=== PATIENT | female | born 2005 | race Caucasian/White ===

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

== ENCOUNTER 2023-01-25 20:58 | Observation (INO) | payer OTHER, SELFPAY ==
[2023-01-25 21:38] VITALS: BMI 23.7
--- NOTE | 2023-01-25 21:38 | OBADM ---
This patient, Shweta Boucher, admitted to the OB room OB Post 117 for observation. Patient/family oriented to hospital policies and general routines including ID bracelet, bed and alarms, visiting hours, pain management, procedures, bathroom and other care routines, personal items, smoking policy, room service/diet, and visiting hours. Patient/Family are encouraged to report perceived risks to care and to ask questions if they do not understand what they are told or what they should do.
--- NOTE | 2023-01-26 07:53 | PM.OBTRLD ---
OB - Triage/Final Diagnosis Visit Information Date of evaluation: 01/25/23 Reason for evaluation: other (spotting) Comments/Additional reasons for admission: I have assessed the risk for this patient, Shweta Mercer Citlaly, and determined that she would benefit from observation care.
== END 2023-01-25 22:00 | disposition home or self-care (01) ==
PROVIDERS: Admitting Provider Student in an Organized Health Care Education/Training Program; Visit Provider Student in an Organized Health Care Education/Training Program
DX: O26.852 Spotting complicating pregnancy, second trimester (principal); Z3A.23 23 weeks gestation of pregnancy
CPT/HCPCS: G0378; G0379

== ENCOUNTER 2025-02-28 16:56 | Emergency (ER) | payer OTHER, SELFPAY ==
--- NOTE | ~2025-02-28 | XR_ITS ---
XR chest 1V portable Ordering provider: Janay Bleu MD History: 20 years Female with . L chest pain, CITLALLI . Comparison: None. FINDINGS: MEDIASTINUM: The cardiac silhouette is not enlarged. LUNGS: No infiltrates, effusions or pneumothorax. OTHER: No free air under the diaphragm. IMPRESSION: No acute cardiopulmonary pathology. Reviewed, dictated and finalized at location A.
--- OUTSIDE RECORDS SUMMARY | 2025-02-28 16:58 | XMS_ITS | Clinical Summary ---
Author Organization [facility] Address [address] [place] [address] Phone Care Team Providers Care Materials Director Name Role Phone WorkmanOsbaldo DO Primary Care Provider [phone] Social History Tobacco Use Types Packs/Day Years Used Date Smoking Tobacco: Never Assessed Comments Unknown Sex and Gender Information Value Date Recorded Sex Assigned at Not on file Legal Sex Female 12:16 PM CDT Gender Identity Not on file Sexual Orientation Not on file Plan of Treatment Health Maintenance Due Date Last Done Comments Hepatitis C Virus (HCV) Screening 2003 Meningococcal B Immunization (1 of 2 - Standard) 2019 Pap Smear 02/22/2024 Influenza Immunization (#1) 05/19/202406/19, 09/25/2014, 11/10/2011 SARS-COV-2 Immunization ( season) 2024 Respiratory Syncytial Virus (RSV) Immunization (Adult) (1 - 1-dose 75+ series) 2078 Hepatitis B Immunization Completed 003, 2003, 2003, Additional history exists Pneumococcal Immunization Combined Aged Out 2003, 2003, 2003 No longer eligible based on patient's age to complete this topic Human Papillomavirus (HPV) Immunization Completed 09/25/2014, 04/04/2013, 11/19/2012 Meningococcal Immunization (ACWY) Aged Out 09/25/2014 No longer eligible based on patient's age to complete this topic TdaP Immunization Completed 05/23/2022, , 09/25/2014 Rotavirus Immunization Aged Out No lo nger eligible based on patient's age to complete this topic Insurance MEDICAID [employer] Care Teams Materials Director Relationship Specialty Start Date End Date Osbaldo Martinez DO [address] [place] [address] PCP - General Family Medicine 02/14/23
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
--- OUTSIDE RECORDS SUMMARY | 2025-02-28 16:58 | XMS_ITS | Continuity of Care Document ---
Author Organization [facility] Address [address] [place] [address] [place] [address] Phone Care Team Providers Care Gin Operator Name Role Phone Emiliano Vázquez MD Unavailable Unavailable Allergies, Adverse Reactions, Alerts Substance Reaction Status Criticality No Known Allergies Active No Inform ation Medications Medication Instructions Dosage Effective Dates (start - stop) Status Comments Lexapro 20 mg tablet take 1 tablet by oral route every day 20 MG - Active buspirone 10 mg tablet take 1 tablet by oral route 2 times every day 10 MG - Active avoid driving or operate machines Vistaril 50 mg capsule take 1 capsule by oral route every bedtime as needed 50 MG - Active PRn for insomnia, avoid driving or operate machines Problems Condition Type Effective Dates (start - stop) [facility] Status Comments No Known Problems Procedures Procedure Date OFFICE/OUTPATIENT VISIT, EST PREV VISIT, NEW, AGE 12-17 Advance Directives Directive Yes / No Effective Date File Name No Information Encounters Encounter Description Practice Location Reason(s) For Visit Diagnoses Date Provider Providers Copied on Encounter [facility], [address] [place], [id number], tel:[phone] [facility] No Information 0 Gurpreet Cummings. [address] [place], [place], [id number] , [place]. tel:[phone] OFFICE/OUTPA TIENT VISIT, EST [facility], [address] [place], [id number], tel:[phone] [facility] anxiety1 (chief complaint) insomani1 (chief complaint) DepressionGeneraliz ed Anxiety DisorderInsomniaFam paramjit history of endo, nutritional and metabolic diseasesFatigue 9 Gurpreet Emiliano. [address], [place], [place], [id number] , [place]. [phone] PREV VISIT, NEW, AGE 12-17 [facility], [address], [place], [place], [id number], [place] tel:[phone] [facility] Physical (chief complaint) Encntr for routine child health exam w/o abnormal findings 9 Gurpreet Cummings. [address], [place], [place], [id number] , [place]. [phone] Family History Family Member Type Diagnosis Age At Onset Brother Problem (finding) ADD/ADHD Mother Problem (finding) Thyroid disorder Father Problem (finding) unknown Mother Problem (finding) Migraines Sister Problem (finding) Seizure disorder Payers Payer name Insurance type Covered constitution party ID Authoriza tion(s) No Information Social History Type Description Quantity Date Captured Comments Alcohol Use Details Unknown Caffeine Use Details Unknown Tobacco Use Status Smoking Status No Information Sex Female Chief Complaint And Reason For Visit No Information Plan Of Treatment Date Type Action Status Goal Tobacco cessation counseling completed History Of Present Illness Encounter Date Complaint History Of Prese nt Illness insomani1 Patient complain ing of a insomnia. Patient stated that she cannot fall asleep for least 2 hours every day. Patient feels slight fatigue in the morning. Patient denies any snoring and trouble with breathing at night. Patient denies any nightmare. anxiety1 Pt still feels s evere anxiety. Pt has mild depression also Pt denies any suicidal or homicidal thought Pt denies any crying spells. Pt did take lexapro and buspar which helped a little bit. Physical Pt needs annual physical. Pt is 8 months . Pt is not breast feeding. Pt has chronic anxiety with depression Pt has been taking zoloft during and she did not think it helped. pt stopped taking zoloft after . Pt feels sad, irritable with short temper. Pt is attentive to the baby and does not think her mood issue is interfering with caring of her . Pt also feels very anxious . She just moved in with her aunt who is her guardian now. Pt denies any suicidal or homicidal thought. Instructions Date Instruction Additional Infor nigel Nutrition surveillance Related t o Body mass index (BMI) 21.0-21.9, adult Assessments Type Assessment Date No Information
[2025-02-28 17:04] VITALS: BP 119/55; PULSE 58; RESP 18; TEMP 36.3; O2SAT 97
[2025-02-28 19:59] VITALS: BP 144/82; PULSE 86; RESP 18; O2SAT 98
--- NOTE | 2025-02-28 20:08 | ECG_ITS ---
Test Date: 2025-02-28 20:29:57 Measurements Intervals [place] Rate: 105 P: 47 WV: 167 QRS: 18 QRSD: 93 T: 29 QT: 307 QTc: 406 Interpretive Statements SINUS TACHYCARDIA INCOMPLETE RIGHT BUNDLE BRANCH BLOCK CONSIDER INFERIOR INFARCT, AGE INDETERMINATE MODERATE T-WAVE ABNORMALITY, CONSIDER ANTERIOR ISCHEMIA BASELINE ARTIFACT- I, II, III, AVR, AVL, AVF, V1-V6 ABNORMAL ECG No previous ECG available for comparison Electronically Signed On 03-01-2025 07:23:43 CDT by Shade Tucker D.O.
--- NOTE | 2025-02-28 20:14 | ED_ITS ---
HPI - SOB/Dyspnea General Chief Complaint: Shortness of Breath/Dyspnea Stated Complaint: i cant breath Time Seen by Provider: 02/28/25 20:03 History of Present Illness HPI Narrative: Patient at 12 weeks presents here with shortness of breath, and some chest pain, ongoing for last 2 days, had gone to another ER yesterday, and had been told to just take Tylenol. Had some chills. Vapes. Related Data Allergies Allergy/AdvReac Type Severity Reaction Status Date / Time No Known Allergies Allergy Mild Verified 02/28/25 19:54 Review of Systems 2 Review of Systems: All systems reviewed & are unremarkable except as noted in HPI and below PMFSH Past Medical History Medical History (Updated 03/01/25 @ 00:00 by Michelle Patterson) No active medical problems Social History Social History (Updated 12/18/21 @ 22:09 by Jeannette Butler PA-C) Substance use: never Exam 2 Narrative: EXAMINATION OF ORGAN SYSTEMS/BODY AREAS: Constitutional: Vital signs per nursing GENERAL: appears very anxious HEAD: Normal with no signs of head trauma. EYES: EOMI, conjunctiva normal ENT: Hearing grossly intact LUNGS: Nonlabored breathing. Clear to auscultation bilaterally HEART: [Regular rate and rhythm] ABD: [Soft], [nontender to palpation] EXT: Normal range of motion SKIN: [No rashes or lesions.] NEURO: [Alert and oriented x 3. No gross focal sensory or strength deficits.] PSYCH: Anxious affect Course Vital Signs Vital signs: Vital Signs Temperature 97.4 F L 02/28/25 17:04 Pulse Rate 58 L 02/28/25 17:04 Respiratory Rate 18 02/28/25 17:04 Blood Pressure 119/55 L 02/28/25 17:04 Pulse Oximetry 97 02/28/25 17:04 Temperature 97.4 F L 02/28/25 17:04 Pulse Rate 85 02/28/25 21:53 Respiratory Rate 18 02/28/25 21:53 Blood Pressure 144/82 H 02/28/25 19:59 Pulse Oximetry 99 02/28/25 21:53 Oxygen Delivery Room Air 02/28/25 19:57 MDM - SOB/Dyspnea MDM Narrative Medical decision making narrative: Patient at 12 weeks presenting here with chest pain and shortness of breath. On exam patient is [slightly tearful and anxious]. I will obtain EKG and chest xray to rule out arrhythmia/ischemia, pneumothorax, or other cause of chest discomfort/shortness of breath. I suspect likely anxiety and will try giving a dose of hydroxyzine and DuoNebs. She has already been seen at another hospital so I did feel further workup was reasonable here. Chest x-ray on my independent interpretation does not show any acute abnormality, no pneumothorax or consolidation. EKG - 12-Lead: Performed at 2028. Interpreted by me. [Sinus rhythm]. Rate 105. [Normal] axis. NC-interval [normal]. QRS duration [normal]. QTc [normal]. [No ST segment elevation or depression]. [T-wave normal]. Impression: No EKG evidence of acute ischemia or dysrhythmia. On reevaluation patient is feeling much better, resting comfortably, vital signs now stable. She states her shortness of breath has essentially resolved and so did her chest pain. She felt like the hydroxyzine was very helpful. Per YEARS criteria, ddimer below cutoff so CT-PE not indicated. Patient also declined CT PE and states she would rather go home. I did have long discussion with the patient and partner at bedside, with nurse at bedside, that I cannot rule out blood clots in her lungs and that this can be very serious and lead to , and that if she changes her mind about getting the CT she can always return to the ER, or if she starts having any new shortness of breath, chest pain or anything else, she needs to return to the ER immediately. Patient expresses understanding and agreement with this plan. She already has follow-up to her OBGYN in a week. Lab Data 02/28/25 20:43 02/28/25 20:43 Labs: Lab Results 02/28/25 Range/Units 20:43 WBC 9.3 (4.5-10.0) K/mm3 RBC 4.64 (4.2-5.4) M/mm3 Hgb 13.2 (12.0-15.0) g/dL Hct 40.3 (37.0-47.0) % MCV 86.9 (80-100) fl MCH 28.4 (26-34) pg MCHC 32.8 (32-36) g/dl RDW 14.9 H (11.5-14.5) % Plt Count 175 (150-375) k/mm3 MPV 9.4 (7.4-10.4) fl Immature Gran % (Auto) 0.3 (0-0.5) % Neut % (Auto) 74.4 H (45.5-73.1) % Lymph % (Auto) 20.8 (18.3-44.2) % [place] % (Auto) 3.9 (2.6-8.5) % Eos % (Auto) 0.4 (0-4.4) % Baso % (Auto) 0.2 (0.2-1.2) % Lymph # (Auto) 1.94 (0.9-3.2) K/mm3 [place] # (Auto) 0.4 (0.1-0.6) K/mm3 Eos # (Auto) 0.0 (0-0.3) K/mm3 Baso # (Auto) 0.0 (0.0-0.1) K/mm3 Abs Immat Gran (auto) 0.03 (0.00-0.031) K/mm3 Absolute Neuts (auto) 6.9 H (1.3-6.7) K/mm3 Absolute Nucleated RBC 0.000 (0.0-0.012) K/mm3 Nucleated RBC % 0.0 (0.0-0.2) % D-Dimer 0.82 H (<0.48) ug/mL Sodium 133 L (137-145) mmol/L Potassium 3.4 (3.4-5.0) mmol/L Chloride 103 (98-107) mmol/L Carbon Dioxide 21 L (22-30) mmol/L Anion Gap 9 (4-12) mmol/L BUN 8 (7-17) mg/dL Creatinine 0.47 L (0.7-1.0) mg/dL Estim Creat Clear Calc 139 ml/min Estimated GFR > 60 (59 - ) Glucose 151 H (65-110) mg/dL Calcium 11.4 H (8.4-10.2) mg/dL Magnesium 1.9 (1.6-2.3) mg/dL Total Bilirubin 0.4 (0.2-1.3) mg/dL AST 21 (14-36) U/L ALT 19 (6-35) U/L Alkaline Phosphatase 57 (38-126) U/L Troponin I < 0.012 (0.000-0.034) ng/mL Total Protein 7.7 (6.3-8.2) g/dL Albumin 4.1 (3.5-5.1) g/dL Discharge Plan Discharge Clinical Impression: Shortness of breath, Anxiety Patient Disposition: Home Condition: Stable Instructions: Shortness of Breath (ED) Additional Instructions: Please follow-up with your OBGYN. We did discuss obtaining a CT here today to rule out blood clots, but you were feeling better, and decided not to get it tonight. If you start having more chest pain or shortness of breath, lightheadedness, leg pain, or anything else at all concerning, or if you change your mind about getting the CT, please come back to the ER immediately. Patient Language: Chinese Prescriptions: New albuterol sulfate 90 mcg/actuation HFA aerosol inhaler 2 puff inhalation QID PRN (Reason: shortness of breath or wheezing) Qty: 8.5 0RF acetaminophen [Tylenol Extra Strength] 500 mg tablet 1,000 mg PO Q6H PRN (Reason: pain) Qty: 50 0RF hydroxyzine HCl 25 mg tablet 25 mg PO TID PRN (Reason: anxiety) Qty: 30 0RF Follow-up/Referrals: PHYSICIAN NOT ON STAFF,NONSTAFF [Primary Care Provider] -
[2025-02-28] MEDS: IPRATROPIUM 0.5 MG/ALBUTEROL SULFATE 2.5 MG AMPUL.NEB 3 ML INHALATION (20:22)
[2025-02-28 20:23] VITALS: PULSE 85; RESP 20
[2025-02-28] MEDS: ACETAMINOPHEN 500 MG TABLET 1000 MG PO (20:35)
[2025-02-28] MEDS: hydrOXYzine HCL 25 MG TABLET PO (20:35)
[2025-02-28 20:39] VITALS: PULSE 98
[2025-02-28 20:53] LABS: Basophils Percent Auto 0.2 % (0.2-1.2); Eosinophils Percent Auto 0.4 % (0-4.4); Hematocrit 40.3 % (37.0-47.0); Hemoglobin 13.2 g/dL (12.0-15.0); Immature Granulocyte Absolute 0.03 K/mm3 (0.00-0.031); Immature Granulocyte Percent A 0.3 % (0-0.5); Lymphocytes Absolute Auto 1.94 K/mm3 (0.9-3.2); Lymphocytes Percent Auto 20.8 % (18.3-44.2); Mean Corpuscular HGB Conc 32.8 g/dl (32-36); Mean Corpuscular Hemoglobin 28.4 pg (26-34); Mean Corpuscular Volume 86.9 fl (80-100); Mean Platelet Volume 9.4 fl (7.4-10.4); Monocytes Absolute Auto 0.4 K/mm3 (0.1-0.6); Monocytes Percent Auto 3.9 % (2.6-8.5); Neutrophils Absolute Auto 6.9 K/mm3 (1.3-6.7); Neutrophils Percent Auto 74.4 % (45.5-73.1); Platelet Count Result 175 k/mm3 (150-375); Red Blood Count 4.64 M/mm3 (4.2-5.4); Red Cell Distribution Width 14.9 % (11.5-14.5); White Blood Count 9.3 K/mm3 (4.5-10.0)
[2025-02-28 21:07] LABS: D Dimer 0.82 ug/mL (<0.48)
[2025-02-28 21:12] LABS: Alanine Aminotransferase 19 U/L (6-35); Albumin Level 4.1 g/dL (3.5-5.1); Alkaline Phosphatase 57 U/L (38-126); Anion Gap 9 mmol/L (4-12); Aspartate Amino Transferase 21 U/L (14-36); Bilirubin,Total 0.4 mg/dL (0.2-1.3); Blood Urea Nitrogen 8 mg/dL (7-17); Calcium 11.4 mg/dL (8.4-10.2); Carbon Dioxide 21 mmol/L (22-30); Chloride 103 mmol/L (98-107); Estimated CRCL calculation 139 ml/min; Estimated Glomerular Filt Rate > 60; Glucose 151 mg/dL (65-110); Magnesium 1.9 mg/dL (1.6-2.3); Potassium 3.4 mmol/L (3.4-5.0); Sodium 133 mmol/L (137-145); Total Protein 7.7 g/dL (6.3-8.2)
--- OUTSIDE RECORDS SUMMARY | 2025-02-28 21:18 | XMS_ITS | Continuity of Care Document ---
Author Organization [facility] Address [address] [address] [place] [address] Phone Care Team Providers Care Floor Runner Name Role Phone Emiliano Vázquez MD Unavailable [...] Diagnoses Date Provider Providers Copied on Encounter [facility] [place], [address] [place], [place], [id number], tel:[phone] [facility] [place] No Information 0 Gurpreet Cummings. [address] [place] [place], [id number] , [place]. tel:[phone] OFFICE/OUTPA TIENT VISIT, EST [facility] [place], [address] [place], [place], [id number], tel:[phone] [facility] anxiety1 (chief complaint) insomani1 (chief complaint) DepressionGeneraliz ed Anxiety DisorderInsomniaFam paramjit history of endo, nutritional and metabolic diseasesFatigue 9 Gurpreet Emiliano. [address], [place], [place], [address] , [place]. [phone] PREV VISIT, NEW, AGE 12-17 [facility] [place], [address], [place], [place], [id number], [place] tel:[phone] [facility] [place] Physical (chief complaint) Encntr for routine child health exam w/o abnormal findings 9 Gurpreet Cummings. [address], [place], [place], [address] , [place]. [phone] Family History Family Member Type Diagnosis Age At Onset Brother Problem (finding) ADD/ADHD Mother Problem (finding) Thyroid disorder Father Problem (finding) unknown Mother Problem (finding) Migraines Sister Problem (finding) Seizure disorder Payers Payer name Insurance type Covered alliance party ID Authoriza tion(s) No Information Social [...]
--- OUTSIDE RECORDS SUMMARY | 2025-02-28 21:18 | XMS_ITS | Clinical Summary ---
Author Organization [facility] Address [address] [place] [address] Care Team Providers Care Scientific Aide Name Role Phone Unavailable Primary Care Provider Unavailabl e Source Comments [facility],non-owned Affiliates and Associated Physician Practices is amultiple site organization consisting of ambulatory clinics and hospital sitesin [place], [place], [place] and [place]. This disclosure is being madepursuant to the Care Everywhere program and may not contain all information available regarding this patient. Last updated 18.[facility] Allergies No known active allergies Medications * [...] AMPLIFIED PROBE (02/08/2023 1:49 PM CDT) Pathologist [facility] Chlamydia Amplified Probe Negative Negative 02/08/2023 8:12 PM CDT [facility] GC Amplified Probe Negative Negative 02/08/2023 8:12 PM CDT [facility] Microbiology ENTIRE ENDOCERVIX / Unknown Collection / Unknown 02/08/2023 1:49 PM CDT 02/08/2023 1:57 PM CDT Narrative [facility] - 02/08/2023 8:12 PM CDT Results based on detection/no detection of ribosomal RNA by amplified method. Gavi Ross TOWEL STRETCHER-[employer]B [employer] [facility] - MICROBIOLOGY OR DERABLES Final Result [facility] [address] [place] [address], [facility] [phone] * HIV-1 HIV-2 ANTIBODY + HIV P24 AG PANEL (02/08/2023 12:30 PM CDT) Pathologist [facility] HIV1/2 Ab + P24 Ag Non Reactive Non Reactive 02/08/2023 1:37 PM CDT [facility] Blood BLOOD SPECIMEN / Unknown Venipuncture / Unknown 02/08/2023 12:30 PM CDT 02/08/2023 12:37 PM CDT Narrative [facility] - 02/08/2023 1:37 PM CDT No Laboratory evidence of HIV infection. [facility] - CHEMISTRY ORDERABLES Fin al Result Performing Organization Address City/[facility] Co de Phone Number [facility] [address] [place] [address] * HEPATITIS C ANTIBODY (02/08/2023 12:30 PM CDT) HCV Antibody Screen Non Reactive Non Reactive 02/08/2023 1:40 PM CDT [facility] Blood BLOOD SPECIMEN / Unknown Venipuncture / Unknown 02/08/2023 12:30 PM CDT 02/08/2023 12:37 PM CDT Narrative [facility] - 02/08/2023 1:40 PM CDT Non Reactive - Antibodies to Hepatitis C virus (HCV) were not detected, result does not exclude early acute HCV infection. [facility] - CHEMISTRY ORDERABLES Fin al Result Performing Organization Address [facility] de Phone Number [facility] [address] [place] [address] from Last 3 Months or Most Recently Relevant to Health Maintenance Insurance [facility]
--- OUTSIDE RECORDS SUMMARY | 2025-02-28 21:18 | XMS_ITS | Clinical Summary ---
Author Organization [facility] Address [address] [place] [address] Phone Care Team Providers Care Evp And Chief Operating Officer Name Role Phone WorkmanOsbaldo DO Primary Care Provider [phone] Social History Tobacco Use Types Packs/Day Years [...] Insurance MEDICAID [employer] Care Teams Evp And Chief Operating Officer Relationship Specialty Start Date End Date Osbaldo Martinez DO [address] [place] [address] PCP - General Family Medicine 02/14/23
[2025-02-28 21:24] LABS: Troponin I < 0.012 ng/mL (0.000-0.034)
[2025-02-28 21:25] VITALS: PULSE 80; RESP 20; O2SAT 99
--- NOTE | 2025-02-28 21:40 | PC.NURSE ---
Addendum entered by Gavi Bauer RN 02/28/25 21:42: MD at bedside for this discussion and aware. Original Note: Patient feeling much better after tylenol and atarax. Discussed elevated dimer in the setting of vs PE. Patient wishes to go home and will closely monitor and reviewed signs and symptoms to return to ER. CTA cancelled.
[2025-02-28 21:53] VITALS: PULSE 85; RESP 18; O2SAT 99
== END 2025-02-28 21:54 | disposition home or self-care (01) ==
PROVIDERS: Emergency Provider Emergency Medicine
DX: O26.891 Other specified pregnancy related conditions, first trimester (principal); R06.02 Shortness of breath; O99.341 Other mental disorders complicating pregnancy, first trimester; F41.9 Anxiety disorder, unspecified; O99.891 Other specified diseases and conditions complicating pregnancy; R00.0 Tachycardia, unspecified; Z3A.12 12 weeks gestation of pregnancy; I45.10 Unspecified right bundle-branch block; R94.31 Abnormal electrocardiogram [ECG] [EKG]
CPT/HCPCS: 36415; 71045; 80053; 83735; 84484; 85025; 85380; 93005; 94640; 99284; A9270

== ENCOUNTER 2025-04-24 10:19 | Observation (INO) | payer OTHER, SELFPAY ==
--- NOTE | 2025-04-24 10:30 | PC.NURSE ---
doppled FHTs, FHR baseline 145, variability 142-154
[2025-04-24 10:33] VITALS: BP 135/75; PULSE 80
--- OUTSIDE RECORDS SUMMARY | 2025-04-24 10:33 | XMS_ITS | Clinical Summary ---
Author Organization [facility] Address [address] [place] [address] Phone Care Team Providers Care Community Development Specialist Name Role Phone WorkOsbaldo acosta DO Primary Care Provider [phone] Social History Tobacco Use Types Packs/Day Years [...] Immunization (1 of 2 - Standard) 2019 SARS-COV-2 Immunization ( season) 2024 Influenza Immunization (#1) 05/19/202506/19, 09/25/2014, 11/10/2011 Respiratory Syncytial Virus (RSV) Immunization (Adult) (1 [...] Insurance [employer] Care Teams Community Development Specialist Relationship Specialty Start Date End Date Osbaldo Martinez DO [address] [place] [address] PCP - General Family Medicine 02/14/23
--- OUTSIDE RECORDS SUMMARY | 2025-04-24 10:33 | XMS_ITS | Continuity of Care Document ---
Author Organization [facility] Address [address] [place] [place] [address] [place] [address] Phone Care Team Providers Care Benefits Clerk Name Role Phone Emiliano Vázquez MD Unavailable Unavailable Allergies, Adverse Reactions, Alerts Substance Reaction Status Criticality No Known Allergies Active No Inform ation Medications Medication Instructions Dosage Effective Dates (start - stop) Status Comments Vistaril 50 mg capsule take 1 capsule by oral route every bedtime as needed 50 MG - Active PRn for insomnia, avoid driving or operate machines buspirone 10 mg tablet take 1 tablet by oral route 2 times every day 10 MG - Active avoid driving or operate machines Lexapro 20 mg tablet take 1 tablet by oral route every day 20 MG - Active Problems Condition Type Effective Dates (start - stop) [facility] Status Comments No Known Problems Procedures Procedure Date OFFICE/OUTPATIENT VISIT, EST PREV VISIT, NEW, AGE 12-17 Advance Directives Directive Yes / No Effective Date File Name No Information Encounters Encounter Description Practice Location Reason(s) For Visit Diagnoses Date Provider Providers Copied on Encounter [facility], [address] [place], [place], [id number], tel:[phone] [facility] No Information 0 Gurpreet Cummings. [address] [place], [place], [address] , [place]. tel:[phone] OFFICE/OUTPA TIENT VISIT, EST [facility], [address] [place], [place], [id number], tel:[phone] [facility] anxiety1 (chief complaint) insomani1 (chief complaint) DepressionGeneraliz ed Anxiety DisorderInsomniaFam paramjit history of endo, nutritional and metabolic diseasesFatigue 9 Gurpreet Emiliano. [address], [place], [place], [id number] , [place]. [phone] PREV VISIT, NEW, AGE 12-17 [facility], [address], [place], [place], [address], [place] tel:[phone] [facility] Physical (chief complaint) Encntr for routine child health exam w/o abnormal findings 9 Gurpreet Cummings. [address], [place], [place], [address] , [place]. [phone] Family History Family Member Type Diagnosis Age [...] Date Complaint History Of Prese nt Illness anxiety1 Pt still feels s evere anxiety. Pt has mild depression also Pt denies any suicidal or homicidal thought Pt denies any crying spells. Pt did take lexapro and buspar which helped a little bit. insomani1 Patient complain ing of a insomnia. Patient stated that she cannot fall asleep for least 2 hours every day. Patient feels slight fatigue in the morning. Patient denies any snoring and trouble with breathing at night. Patient denies any nightmare. Physical Pt needs annual physical. Pt is [...]
--- OUTSIDE RECORDS SUMMARY | 2025-04-24 10:33 | XMS_ITS | Clinical Summary ---
Author Organization [facility] Address [address] [place] [address] Care Team Providers Care Mathematician Name Role Phone Unavailable Primary Care Provider Unavailabl e Source Comments [facility],non-owned Affiliates and Associated Physician Practices is amultiple site organization consisting of ambulatory clinics and hospital sitesin [place], [place], [place] and [place]. This disclosure is being madepursuant to the Care Everywhere program and may not contain all information available regarding this patient. Last updated 18.[facility] Allergies No known active allergies Medications * [...] season) 2024 DEPRESSION SCREENING 09/18/2024 INFLUENZA VACCINE (#1) 2025 6, 09/25/2014, 11/10/2011 ZOSTER VACCINE (1 of 2) [...] AMPLIFIED PROBE (02/08/2023 1:49 PM CDT) Pathologist [facility] Chlamydia Amplified Probe Negative Negative 02/08/2023 8:[address] [facility] GC Amplified Probe Negative Negative 02/08/2023 8:[address] [facility] Microbiology ENTIRE ENDOCERVIX / Unknown Collection / Unknown 02/08/2023 1:49 PM CDT 02/08/2023 1:[address] [facility] - 02/08/2023 8:12 PM CDT Results based on detection/no detection of ribosomal RNA by amplified method. Gavi Ross CAR WORKER HELPER-SEASONER LAB - MICROBIOLOGY OR DERABLES Final Result [facility] [address] [place] [address], [facility] [phone] * HIV-1 HIV-2 ANTIBODY + HIV P24 AG PANEL (02/08/2023 12:30 PM CDT) Pathologist [facility] HIV1/2 Ab + P24 Ag Non Reactive Non Reactive 02/08/2023 1:37 PM CDT [facility] Blood BLOOD SPECIMEN / Unknown Venipuncture / Unknown 02/08/2023 12:30 PM CDT 02/08/2023 12:37 PM CDT Narrative [facility] - 02/08/2023 1:37 PM CDT No Laboratory evidence of HIV infection. [facility] - CHEMISTRY ORDERABLES Fin al Result Performing Organization Address City/[facility] Co de Phone Number [facility] [address] [place] [address] * HEPATITIS C ANTIBODY (02/08/2023 12:30 PM CDT) HCV Antibody Screen Non Reactive Non Reactive 02/08/2023 1:40 PM CDT [facility] Blood BLOOD SPECIMEN / Unknown Venipuncture / Unknown 02/08/2023 12:30 PM CDT 02/08/2023 12:37 PM CDT Narrative [facility] - 02/08/2023 1:40 PM CDT Non Reactive - Antibodies to Hepatitis C virus (HCV) were not detected, result does not exclude early acute HCV infection. [facility] - CHEMISTRY ORDERABLES Fin al Result Performing Organization Address [facility] de Phone Number [facility] [address] [place] [address] from Last 3 Months or Most Recently Relevant to Health Maintenance Insurance [facility]
[2025-04-24 10:45] VITALS: BP 133/71; PULSE 80
[2025-04-24 11:00] VITALS: BP 119/74; PULSE 81
[2025-04-24 11:07] LABS: Add Urine Microscopic? YES; Appearance Urine Cloudy (Clear); Glucose Urine UA Negative (Negative); Leukocyte Esterase Ur 1+ LEU/UL (Negative); Need Manual Microscopic Reviewed; Nitrate Urine Negative (Negative); Non Pathogenic Casts 0-2; Specific Grav Ur 1.007 (1.001-1.035)
--- NOTE | 2025-04-24 11:08 | OBADM ---
This patient, Shweta Boucher, admitted to the OB room OB Post 116 for observation. Patient/family oriented to hospital policies and general routines including ID bracelet, bed and alarms, visiting hours, pain management, procedures, bathroom and other care routines, personal items, smoking policy, room service/diet, and visiting hours. Patient/Family are encouraged to report perceived risks to care and to ask questions if they do not understand what they are told or what they should do.
[2025-04-24 11:15] VITALS: BP 121/66; PULSE 78
[2025-04-24 11:30] VITALS: BP 123/64; PULSE 69
[2025-04-24 11:45] VITALS: BP 125/72; PULSE 74
--- NOTE | 2025-04-24 11:45 | PC.NURSE ---
Spoke to Dr. Ruiz (sql application developer OB) at nurses station. Discussed UA showed 1+ bacteria but most likely contamination due to many squamous cells present. Discussed pt. was on metronidazole for a yeast infection that she stopped yesterday d/t symptoms not resolving. Order received for diflucan 150 mg PO every other day for a total of 2 doses. Order received to perform SVE to r/o labor.
--- NOTE | 2025-04-24 12:00 | PC.NURSE ---
Performed SVE per Dr. Ruiz order. Cervix is closed thick and high. White cottage cheese like discharge and redness to labia noted with exam
--- NOTE | 2025-04-24 12:07 | PC.NURSE ---
Spoke to Dr. Ruiz at nurses station and notified of SVE closed thick and high. Order received for pt. to discharge home.
--- NOTE | 2025-04-24 12:15 | PC.NURSE ---
Awaiting diflucan to arrive to floor to administer to pt. prior to discharge as pt. has lack of transportation. Pt. would like to eat lunch before discharge and will be awaiting voucher approval for a cab to dc home, as pt. arrived via EMS and does not have a way to get home.
[2025-04-24] MEDS: FLUCONAZOLE 150 MG TABLET PO (12:58)
--- NOTE | 2025-04-24 13:27 | PC.NURSE ---
Pt. given PTL handout, SDH handout on housing and has scheduled apt. with Dr. Nayak tomorrow. Given cab voucher for rechecker [employer] [place] and escorted to main entrance by this RN for pick up worker by cab.
--- NOTE | 2025-05-18 16:38 | P.PNOB_ITS ---
OB - Triage/Final Diagnosis Visit Information Comments/Additional reasons for admission: I have assessed the risk for this patient, Shweta Boucher, and determined that she would benefit from observation care. Evaluation Laboratory results: Laboratory Tests 04/24/25 10:39 Urine Color Yellow Urine Appearance Cloudy H Urine pH 6.0 Ur Specific [place] 1.007 Urine Protein Negative Urine Glucose (UA) Negative Urine Ketones Negative Ur Blood (Man) Negative Urine Nitrate Negative Urine Bilirubin Negative Urine Urobilinogen 0.2 Ur Leukocyte Esterase 1+ H Add Ur Microanalysis Reviewed Urine RBC 0-2 Urine WBC 11-20 H Ur Squamous Epith Cells Many H Urine Bacteria 1+ H Urine Casts 0-2 Final Diagnosis (1) False labor: Code(s): O47.9 - False labor, unspecified Status: Acute
== END 2025-04-24 13:27 | disposition home or self-care (01) ==
PROVIDERS: Admitting Provider Obstetrics & Gynecology; Visit Provider Obstetrics & Gynecology
DX: O47.02 False labor before 37 completed weeks of gestation, second trimester (principal); Z3A.19 19 weeks gestation of pregnancy
CPT/HCPCS: 81001; A9270; G0378; G0379

== ENCOUNTER 2025-06-24 09:11 | Outpatient (RCR) | payer OTHER, SELFPAY ==
--- OUTSIDE RECORDS SUMMARY | 2025-06-22 11:05 | XMS_ITS | Clinical Summary ---
Author Organization [facility] Address [address] [place] [address] Phone Care Team Providers Care Licensed Real Estate Broker Name Role Phone WorkOsbaldo acosta DO Primary Care Provider [phone] Social History Tobacco Use Types Packs/Day Years [...] Immunization (1 of 2 - Standard) 2019 Influenza Immunization (#1) 05/19/202506/19, 09/25/2014, 11/10/2011 SARS-COV-2 Immunization ( season) 2025 Respiratory Syncytial Virus (RSV) Immunization (Adult) (1 [...] Insurance [employer] Care Teams Licensed Real Estate Broker Relationship Specialty Start Date End Date Osbaldo Martinez DO [address] [place] [address] PCP - General Family Medicine 02/14/23
--- OUTSIDE RECORDS SUMMARY | 2025-06-22 11:05 | XMS_ITS | Encounter Summary ---
Author Organization [facility] Address [address] [place] [id number] Care Team Providers Care Finishing And Shipping Supervisor Name Role Phone Glenny Brown Primary Care Provider [phone] Ran Martinez DO Primary Care Provider Malu Cortes WOOL WASHER FEEDER Primary Care Provider [phone] Kassi Locke MEDICAL PHYSICIST Primary Care Provider [phone] Encounter Details Date Type Department Care Team (Late st Contact Info) Description 10/04/2018 Abstract [facility] CONVERSION [address] [place] [address] , Yarelis Delatorre MD Social History Tobacco Use Types Packs/Day Years Used Date Smoking Tobacco: Never Assessed Comments Unknown Sex and Gender Information Value Date Recorded Sex Assigned at Not on file Legal Sex Female 10:23 PM NEUROLOGY DIRECTOR Gender Identity Not on file Sexual Orientation Not on file documented as of this encounter Plan of Treatment Not on file documented as of this encounter Visit Diagnoses Not on filedocumented in this encounter Additional Health Concerns Infection Onset Date Last Indicated Resolved Time COVID-19 Rule Out 03/26/2022 03/26/2022 03/26/2022 4:26 PM CDT documented as of this encounter Care Teams Finishing And Shipping Supervisor Relationship Specialty Start Date End Date Glenny Brown FNP [address] [place] [address] PCP - General NURSE PRACTITIONER 12/05/18 06/27/21 Ran Martinez DO [address] [place] [address] PCP - General FAMILY PRACTICE 06/28/21 12/14/23 Malu Cortes APRN [address] [place] [address] PCP - General NURSE PRACTITIONER 12/25/23 04/03/24 Kassi Locke, PAUL [address] [place] [address] PCP - General NURSE PRACTITIONER 04/04/24 03/06/25 documented as of this encounter
--- OUTSIDE RECORDS SUMMARY | 2025-06-22 11:05 | XMS_ITS | Clinical Summary ---
Author Organization [facility] Address [address] [place] [address] Care Team Providers Care Steam Tunnel Feeder Name Role Phone Unavailable Primary Care Provider Unavailabl e Source Comments [facility],non-owned Affiliates and Associated Physician Practices is amultiple site organization consisting of ambulatory clinics and hospital sitesin [place], [place], [place] and [place]. This disclosure is being madepursuant to the Care Everywhere program and may not contain all information available regarding this patient. Last updated 18.[facility] Allergies No known active allergies Medications * [...] CHLAMYDIA/GONORRHEA SCREENING 02/09/2024, 07/17/2022 PAP SMEAR 02/22/2024 DEPRESSION SCREENING 09/18/2024 COVID-19 VACCINE (1 - 2023-2 5 season) 2025 INFLUENZA VACCINE (#1) 2025 6, 09/25/2014, 11/10/2011 [...] Probe Negative Negative 02/08/2023 8:12 PM CDT [facility] GC Amplified Probe Negative Negative 02/08/2023 8:12 PM CDT [facility] Microbiology ENTIRE ENDOCERVIX / Unknown Collection / Unknown 02/08/2023 1:49 PM CDT 02/08/2023 1:57 PM CDT Narrative [facility] - 02/08/2023 8:12 PM CDT Results based on detection/no detection of ribosomal RNA by amplified method. Gavi Ross PLANNING ENGINEER-ASSISTANT HEAD CASHIER LAB - MICROBIOLOGY OR DERABLES Final Result [facility] [address] [place] [address], [facility] [phone] * HIV-1 HIV-2 ANTIBODY + HIV P24 AG PANEL (02/08/2023 12:30 PM CDT) Pathologist [facility] HIV1/2 Ab + P24 Ag Non Reactive Non Reactive 02/08/2023 1:37 PM CDT [facility] Blood BLOOD SPECIMEN / Unknown Venipuncture / Unknown 02/08/2023 12:30 PM CDT 02/08/2023 12:37 PM CDT Narrative [facility] - 02/08/2023 1:37 PM CDT No Laboratory evidence of HIV infection. [facility] - CHEMISTRY ORDERABLES Fin al Result Performing Organization Address City/[facility] Co de Phone Number [facility] [address] [place] [address] * HEPATITIS C ANTIBODY (02/08/2023 12:30 PM CDT) HCV Antibody Screen Non Reactive Non Reactive 02/08/2023 1:40 PM CDT [facility] Blood BLOOD SPECIMEN / Unknown Venipuncture / Unknown 02/08/2023 12:30 PM CDT 02/08/2023 12:37 PM CDT Narrative [facility] - 02/08/2023 1:40 PM CDT Non Reactive - Antibodies to Hepatitis C virus (HCV) were not detected, result does not exclude early acute HCV infection. [facility] - CHEMISTRY ORDERABLES Fin al Result Performing Organization Address [facility] de Phone Number [facility] [address] [place] [address] from Last 3 Months or Most Recently Relevant to Health Maintenance Insurance [facility]
--- OUTSIDE RECORDS SUMMARY | 2025-06-22 11:05 | XMS_ITS | Data Portability ---
Author Organization [facility] Address [address] [place] [address] Assessment No assessment recorded. Plan of Treatment Reminders Order Date Submit Date Provider Last Modified By Organization Details Last Modified Time Details Appointments U/S OB GROWTH 2024 10:00A M ULTRASOUND Not available Not available Not available OB ROUTINE 2024 10:45A M ANDREW CHATMAN MD Not available Not available Not available Lab bacteri al vaginos is DNA, PCR, vaginal fluid 2024 025 [facility] (Lab), [address], [place], [address], 05/22/2025 17:05:21 chago sp DNA, vaginal 2024 025 [facility] (Lab), [address] [place], [address], 05/22/2025 17:05:21 STI panel 2024 025 [facility] (Lab), [address], [place], [address], 05/22/2025 17:05:20 Referral None recorde d. Procedures None recorde d. Surgeries None recorde d. Imaging US, obstetr ic, follow- up 2024 025 [facility], [address], [place], [address], 06/04/2025 14:07:37 US, obstetr ic, 2nd or 3rd trimest er 2024 025 [email or web address] [place], [address], [place], [address], 05/07/2025 14:03:49 Medication Orders Procard ia XL 30 mg tablet, extende d release 2024 025 [id number], [address], [place], [place], [id number], 05/07/2025 12:57:17 Patient TargetsNo targets recorded. Patient InstructionsNo instructions recorded. Reason for Referral None Reported. Results Created Date Observation Date Name Description Value Unit Range Abnormal Flag Note LastModifiedBy Organization Detail LastModifiedTime 05/07/2005/07/2025 US, obste tric, 2nd or 3rd trime ster No observ ation record ed. [email or web address] [place] [address], [place], [address], 05/07/2025 18:24:42 05/07/20 25 05/07/2025 US, obste tric, 2nd or 3rd trime ster No observ ation record ed. [email or web address] [address], [place], [address], 05/07/2025 14:17:24 06/04/20 25 06/04/2025 , obste tric, follo w-up No observ ation record ed. [email or web address] [address], [place], [address], 06/04/2025 13:43:46 06/04/20 25 06/04/2025 US, obste tric, follo w-up No observ ation record ed. [email or web address] [address], [place], [address], 06/04/2025 14:09:43 Result Notes None recorded. Problems Name Problem SNOMED Code Status Onset Date Resolution Date Notes Provider Name and Address Organization Details Recorded Time 78442127 Active 2024 PRISCILA Gupta severino, [facility] 16:17:32 Pleurisy 201721406 Active 2024 albuterol PRN ANDREW CHATMAN MD [address], [place], [address], [facility] 5 16:32:17 Anxiety 21534900 Active 2024 hydroxyzi ne PRN ANDREW CHATMAN MD [address], [place], [address], [facility] 5 16:32:34 Hypertens cristina disorder 69297781 Active 2024 baseline labs 03/17 wnl Procardia XL 60 daily ANDREW CHATMAN MD [address], [place], [address], [facility] 5 11:33:46 Abnormal placenta affecting managemen t of mother 75416533 Active 2024 - serial growth US ANDREW CHATMAN MD [address], [place], [address], [facility] 5 12:57:01 Large for gestation age fetus 692619958 Active 2024 - EFW 98% at 24 weeks - Continue serial growth US ANDREW CHATMAN MD [address], [place], [address], [facility] 5 12:35:30 Problem Notes None recorded. Medical Equipment None Reported. Allergies No known drug allergies Medications Name Sig Start Date Stop Date Status Note LastModified by Organization Details LastModified Time nifedipine ER 30 mg tablet,exte nded release 24 hr TAKE 1 TABLET BY MOUTH EVERY DAY active Not Available Not Available No t Available fluconazole 150 mg tablet Take 1 tablet as needed by oral route for 1 day. 05/29 completed Not Available Not Available Not Available ondansetron HCl 4 mg tablet TAKE 2 TABLETS BY MOUTH EVERY DAY DIRECTED active Not Available Not Available No t Available metronidazo le 500 mg tablet TAKE 1 TABLET BY MOUTH TWICE DAILY FOR 7 DAYS 05/07 completed Not Available Not Available Not Available acetaminoph en 500 mg tablet TAKE 2 TABLETS BY MOUTH EVERY 6 HOURS NEEDED FOR PAIN 2024 active Not Available Not Available Not Avai lable amoxicillin 500 mg tablet Take 1 tablet twice a day by oral route for 5 days. 05/07 completed Not Available Not Available Not Available nifedipine ER 60 mg tablet,exte nded release 24 hr TAKE 1 TABLET BY MOUTH EVERY DAY active Not Available Not Available No t Available hydroxyzine HCl 25 mg tablet TAKE 1 TABLET BY MOUTH THREE TIMES DAILY NEEDED FOR ANXIETY 2024 active Not Available Not Available Not Avai lable albuterol sulfate HFA 90 mcg/actuati on aerosol inhaler INHALE 2 PUFFS BY MOUTH FOUR TIMES DAILY NEEDED FOR SHORTNESS OF BREATH OR WHEEZING active Not Available Not Available No t Available ondansetron 4 mg disintegrat ing tablet DISSOLVE 1 TABLET ON THE TONGUE EVERY 4 TO 6 HOURS NEEDED active Not Available Not Available No t Available Vitals Date Recorded Body weight Systolic And Diastolic Provider Name and Address Organization Details Last Updated DateTime 05/07/2025 92585.08135 g 128/84 mm[Hg] Quin Aj [facility] 05/07/2025 12:26:53 Date Recorded Body height Body mass index (BMI) Body weight Systolic And Diastolic Provider Name and Address Organization Details Last Updated DateTime 05/16/2025 152.4 cm 28.8 kg/m2 42382.23 g 128/77 mm[Hg] Isatu Pike [facility] 05/16/2025 11:46:01 Date Recorded Body weight Systolic And Diastolic Provider Name and Address Organization Details Last Updated DateTime 06/04/2025 11051.71634 g 136/82 mm[Hg] Nickie Alexei [facility] 06/04/2025 11:00:41 Social History Question Answer Notes LastModified by Organizat ion Details LastModified Time Tobacco Smoking Status Never Smoker [facility] 03/17/2025 14:57:54 Do You Have An Advance Directive? No Information n ot available 03/17/2025 If You Are , What Was Your Level Of Alcohol Consumption Prior To ? None [email or web address] Information not available 03/17/2025 Are You Blind Or Do You Have Difficulty Seeing? No [email or web address] Information n ot available 03/17/2025 What Is Your Level Of Caffeine Consumption? None Information not available 03/17/2025 In The 14 Days Before Symptom Onset, Have You Had Close Contact With A Laboratory-confirm ed COVID-19 While That Case Was Ill? No [email or web address] Information n ot available 03/17/2025 In The 14 Days Before Symptom Onset, Have You Had Close Contact With A Person Who Is Under Investigation For COVID-19 While That Person Was Ill? No [email or web address] Information not available 03/17/2025 Have You Been To An Area Known To Be High Risk For COVID-19? No [email or web address] Information not available 03/17/2025 Are You Deaf Or Do You Have Serious Difficulty Hearing? No Information not available 03/17/2025 What Type Of Diet Are You Following? REGULAR [email or web address] Information n ot available 03/17/2025 What Is The Highest Grade Or Level Of School You Have Completed Or The Highest Degree You Have Received? [id number] [email or web address] Information not available 03/17/2025 Are There Any Guns Present In Your Home? No [email or web address] Information not available 03/17/2025 Do You Use Your Seat Belt Or Car Seat Routinely? Yes [email or web address] Information not available 03/17/2025 Are You Sexually Active? Yes [email or web address] Information not available 03/17/2025 Do You Have Smoke And Carbon Monoxide Detectors In Your Home? Yes [email or web address] Information not available 03/17/2025 Do You Use Sunscreen Routinely? Yes [email or web address] Information not available 03/17/2025 Has Tobacco Cessation Counseling Been Provided? No Information not available 03/17/2025 Do You Have Difficulty Walking Or Climbing Stairs? No [email or web address] Information not available 03/17/2025 Sex: Unknown Functional Status Question Answer Note LastModified by Organizat ion Details LastModified Time Do you use any illicit or recreational drugs? No [email or web address] Information not available 03/17/2025 Do you or have you ever used any other forms of tobacco or nicotine? No [email or web address] Information not available 03/17/2025 What is your level of alcohol consumption? None [email or web address] Information not available 03/17/2025 Are you able to walk independently without assistance or assistive devices? YESWOREST [email or web address] Information not available 03/17/2025 Are you able to care for yourself independently? Yes [email or web address] Information not available 03/17/2025 Do you have difficulty dressing, bathing, grooming, or toileting? No [email or web address] Information not available 03/17/2025 What is your exercise level? None [email or web address] Information not available 03/17/2025 Mental Status Question Answer Note LastModified by Organization D etails LastModified Time Do you feel stressed (tense, restless, nervous, or anxious, or unable to sleep at night)? [id number] [email or web address] Information not available 03/17/2025 Family History Relationship Description Onset Age of this Age Resolved Age Notes LastModified by Organization Details LastModified Time Mother Diabetes mellitus [email or web address] Not available 2024 15:00:16 Mother Hypertensive disorder Not available 2024 15:00:32 Maternal Grandmother Malignant neoplasm of breast [email or web address] Not available 2024 15:00:53 Maternal Grandmother Carcinoma of colon [email or web address] Not available 2024 15:01:28 Maternal Grandmother Diabetes mellitus [email or web address] Not available 2024 15:01:38 Maternal Grandfather Diabetes mellitus [email or web address] Not available 2024 15:01:46 Maternal Grandfather Hypercholest erolemia [email or web address] Not available 2024 15:02:26 Maternal Grandfather Heart disease Not available 2024 15:02:42 Medical History Condition Response Allergies (Food, seasonal, environmental ) N Other N Blood Transfusion N Breast Cancer N Drug/Latex Allergies/Reactions N Lung Disease N Dermatologic Disorders N Defects or Inherited Disease N Breast Problem N Gestational Diabetes N Hematologic disorders N Anesthesia Complications N History of STI N Deep Vein Thrombosis N Polycystic ovary syndrome N Anxiety Disorder Y Autoimmune disease N Arthritis N Polyps N Infertility N History of abnormal pap N Acid Reflux (GERD) N Cancer N Varicosities N Stroke N Neurologic/Epilepsy N Endometriosis N High Cholesterol N Headaches N Fibromyalgia N Kidney Disease N Heart Problems N Thyroid Problems N Kidney or Bladder Problems N GI Problems N Eating Disorder N Anemia N Art (IVF or FET) N Psychiatric Illness N Ovarian Cancer N Diabetes N Pulmonary (TB, Asthma) N Hepatitis/Liver Disease N No Past Medical History N Eczema N Urinary Tract Infection N Abuse/Domestic Violence N Asthma Y Trauma/Violence N Depression/ depression Y Heart Disease N Pre-Eclampsia Y Hypertension Y Osteoporosis N Thrombophilias N Gynecological History Statement/Question Response Flow Moderate Date of LMP 12/07/2024 On BCP's at Conception? N Was last menstrual period normal Y STIs/STDs N HPV Vaccine Y Current Control Method Age at First Child 14 Are cycles usually normal Y Date of Last Colonoscopy Sexually Active? Y Menses Monthly Y Date of DEXA bone scan Age of first menstrual cycle 11 Date of Last Pap Smear Sexual Problems? N Desired Control Method None LMP Definite Obstetrics History GPAL:G 3 P 1 1 0 2 Type Value Full Term 1 Premature 1 Living 2 Total 3 Past Encounters Encounter ID Performer Location Encounter Start Date Encounter Closed Date Diagnosis/Indication Diagnosis SNOMED-CT Code Diagnosis ICD10 Code Diagnosis IMO Codes Diagnosis Note [id number] ANDREW CHATMAN MD [place] [address] [address] 03/17/2025 14:26:36 03/17/2025 16:09:07 screening 229364789 Z36.87 Z3A.14 [id number] ANDREW CHATMAN MD [place] [address] [address] 03/17/2025 14:27:27 03/17/2025 16:55:35 screening 022534761 Z36.0 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 Chronic hy pertension complicating AND/OR reason for care during 08147375 O10.919 79483999 - asymptomat ic- hx of preeclamps ia with severe features with G2 - not currently on BP meds- baseline labs today- if elevated again in 1 week, will start procardia XL 30 daily Gestation period, 14 weeks 55214708 Z3A.14 6145486 - continue PNV [id number] Lior Ruiz MD [place] [address],[place] [address] 04/02/2025 15:08:55 04/02/2025 16:18:16 care status 814041393 Z34.82 [id number] ANDREW CHATMAN MD [place] [address],[place] [address] 05/07/2025 11:05:46 05/07/2025 12:37:49 Ultrasound scan - obstetric 321651518 Z36.3 Z3A.21 [id number] ANDREW CHATMAN MD [place] [address],[place] [address] 05/07/2025 11:06:18 05/07/2025 12:57:31 Hypertensive disorder 59127051 I10 - chronic HTN, hx of preeclamps ia with severe features in G2 - discussed 37 week induction due to chronic HTN on meds- plan for 32 week testing Abnormal p lacenta affecting management of mother 23952450 O43.199 13214743 - serial growth US Gestation period, 21 weeks 73690898 Z3A.21 [id number] ANDREW CHATMAN MD [place] [address],[place] [address] 05/16/2025 11:31:03 05/16/2025 12:36:53 Recurrent candidiasis of vagina 009030649 B37.31 35191785 - treated x3 in last month- extended swab sent to evaluate further- follow up on results as available [id number] MD [place] [address],[place] [address] 06/04/2025 09:50:03 06/04/2025 10:56:40 Follow-up encounter 866082676 Z36.2 Z3A.25 [id number] ANDREW CHATMAN MD [place] [address],[place] [address] 06/04/2025 09:50:25 06/04/2025 12:39:13 Hypertensive disorder 94585702 I10 20941835 - chronic HTN, hx of preeclamps ia with severe features in G2 - discussed 37 week induction due to chronic HTN on meds - plan for 32 week testing- continue Procardix XL 60 daily Anxiety 79434523 F41.9 38268 Abnormal p lacenta affecting management of mother 20956666 O43.199 98977871 - serial growth US Large for gestation age fetus 115405412 O36.60X0 76468789 - EFW 98% at 24 weeks with borderline polyhydram nios- serial growth US Gestation period, 25 weeks 71776923 Z3A.25 3024697 - continue PNV Health Concerns Section Related Observation LastModified by Organization Detai ls LastModified Time None Recorded Concern Status LastModified by Organization Details LastModified Time None Recorded Advance Directives Directive N: Payers Insurance Date Sequence Insurance Name Policy Number Policy Sotelo Covered Member ID Sotelo Member ID Guarantor Name 06/01/2025 1 [facility] - DOS ON OR AFTER 21 (MEDICAID REPLACEMENT - HMO) Shweta Mercer Citlaly [id number] Shweta Guevara Citlaly 03/17/2025 1 [facility] [id number] Shwetastef Guevara Citlaly [id number] Shwetamaria esther Guevara Citlaly Notes Date Note Type Note Provider Name and Address Organization Details Recorded Time 05/07/2025 text/html Generic HPI TemplateReported by Patient ANDREW CHATMAN MD [address], [place], [address], [facility] 05/07/2025 12:57:27 05/16/2025 text/html ROS as noted in the HPI Patient presents for evaluation for recurrent yeast infections. She reports multiple episodes of irritation, abnormal white and thick discharge, and dryness. She has had temporary relief with Diflucan but symptoms keep returning. She tried Monistat 7 also with temporary relief. No new soaps or detergent or other irritants. Isatu haq, [facility] 05/16/2025 12:41:54 06/04/2025 text/html Generic HPI TemplateReported by Patient ANDREW CHATMAN MD [address], [place], [address], [place] [facility] 06/04/2025 12:37:05 OBGyn Episode Ob Episode Information Episode Created Date Number of Fetuses Patient Bloodtype Patient rh Status Prepregnancy Weight lbs Domestic Partner Domestic Partner Phone Father Name Risk Tech Status 03/17/20 25 1 CLOSED Fetus Data First Name Last Name Admitted to NICU Weight (g) Sex Living Outcome Pediatric Complications Fetus ID Race Codes Race Delivery Type 3373.36 [id number] F Full Term [id number] Vaginal Delivery Rasta Calculation Initial Rasta Date Initial Exam Date Initial Exam Provider Initial Ultrasound Date Last Menstrual Period Date Ultra Sound Weeks Gestation 0 Eighteen To Twenty Week Rasta Update Ultra Sound Date Fundal Height At Umbil Quickening Date Ultra Sound Latest Weeks Gestation Final Rasta Confirmed By Final Rasta Confirmed Date Final Rasta Date Ultra Sound Latest Days Gestation 0 0 Menstrual History Last Menstrual Date Menses Monthly On Bcp Conception Prior Menses Frequency Hcg Plus Date Menarche Onset Age Delivery Information Delivery Date Delivery Type Labor Anesthesia Weeks Gestation Incision Type Labor Labor Length Hrs Delivered By Post Complications Tubal Sterilization Discharge Date Comments 9 38 Discharge Information Feeding Method Contraceptive Method Maternal HG B and HCT Levels Ob Episode Information Episode Created Date Number of Fetuses Patient Bloodtype Patient rh Status Prepregnancy Weight lbs Domestic Partner Domestic Partner Phone Father Name Risk Tech Status 03/17/20 25 1 A Negative OPEN Fetus Data First Name Last Name Admitted to NICU Weight (g) Sex Living Outcome Pediatric Complications Fetus ID Race Codes Race Delivery Type [id number] Problems Problem Notes RHOGAM @ 28 WKS Problem Name Start Date End Date Resolution Snomed Code Not e Large for gestation age fetus 06/04/20251995136743722 - EFW 98% at 24 weeks- Continue serial growth US Anxiety 03/17/2025 57787359 hydroxyzi ne PRN Hypertensive disorder 03/17/2025 7262956 3 baseline labs 03/17 wnlProcardia XL 60 daily Abnormal placenta affecting management of mother 05/07/2025 58973590 - serial growth US Pleurisy 03/17/2025 010161541 albuterol PRN Rasta Calculation Initial Rasta Date Initial Exam Date Initial Exam Provider Initial Ultrasound Date Last Menstrual Period Date Ultra Sound Weeks Gestation 09/13/2025 03/17/2025 03/17/2025 12/07/2024 15 Eighteen To Twenty Week Rasta Update Ultra Sound Date Fundal Height At Umbil Quickening Date Ultra Sound Latest Weeks Gestation Final Rasta Confirmed By Final Rasta Confirmed Date Final Rasta Date Ultra Sound Latest Days Gestation 0 [email or web address] 03/17/2025 09/13/20 25 0 Pre-colleen Flowsheet Flowsheet Date 03/17/2025 Kessler Score Blood Edema Fundus Height Fundus Units Glucose Ketones Leukocytes Nitrite Labor Signs Protein Cervic Dilation Cervic Effacement Cervic Station neg none Type Weight in lbs Pre/Post Dialysis Refused Weight 135.138574385939 BP Diastolic BP Location Tested BP Systolic BP Type 100 R arm 180 sitting 90 R arm 140 sitting Fetus Heart Rate Present A Present Fetus Movement A No Comments Patient presents to [facility] care. complicated by hx of preeclampsia in her G2 . Was delivered at 35 weeks for preeclampsia with severe features. Asymptomatic today. Will start procardia XL 30mg daily today. otherwise uncomplicated. No nausea or cramping. Desires NIPT. Will draw today with new OB labs. RRTC 1 week for BP check. Flowsheet Date 04/02/2025 Kessler Score Blood Edema Fundus Height Fundus Units Glucose Ketones Leukocytes Nitrite Labor Signs Protein Cervic Dilation Cervic Effacement Cervic Station neg none 145 cm Type Weight in lbs Pre/Post Dialysis Refused Weight 138.639609727757 BP Diastolic BP Location Tested BP Systolic BP Type 82 L arm 138 sitting Fetus Heart Rate Present Fetus Movement A No Comments pt has lower pelvic pain. no bleeding or discharge. no swelling. she is nausea stated she been take baby aspirin otc Flowsheet Date 05/07/2025 Kessler Score Blood Edema Fundus Height Fundus Units Glucose Ketones Leukocytes Nitrite Labor Signs Protein Cervic Dilation Cervic Effacement Cervic Station Type Weight in lbs Pre/Post Dialysis Refused BP Diastolic BP Location Tested BP Systolic BP Type Fetus Heart Rate Present Fetus Movement Comments Flowsheet Date 05/07/2025 Kessler Score Blood Edema Fundus Height Fundus Units Glucose Ketones Leukocytes Nitrite Labor Signs Protein Cervic Dilation Cervic Effacement Cervic Station Type Weight in lbs Pre/Post Dialysis Refused 146.229313531730 BP Diastolic BP Location Tested BP Systolic BP Type 84 L arm 128 sitting Fetus Heart Rate Present A 141 Fetus Movement A Yes Comments Good movement. No cram ping or bleeding. Nausea improving. Pelvic pain improving with belly band. Anatomy incomplete, need heart views and left digits. EFW 86%, marginal cord insertion. Serial growth US. BP intermittently mild range at home, continue Procardia XL 30 daily. RTC 4 weks. Flowsheet Date 05/16/2025 Kessler Score Blood Edema Fundus Height Fundus Units Glucose Ketones Leukocytes Nitrite Labor Signs Protein Cervic Dilation Cervic Effacement Cervic Station Type Weight in lbs Pre/Post Dialysis Refused Weight 147.937354701978 BP Diastolic BP Location Tested BP Systolic BP Type 77 L arm 128 sitting Fetus Heart Rate Present Fetus Movement A Yes Comments Problem visit, see note Flowsheet Date 06/04/2025 Kessler Score Blood Edema Fundus Height Fundus Units Glucose Ketones Leukocytes Nitrite Labor Signs Protein Cervic Dilation Cervic Effacement Cervic Station Type Weight in lbs Pre/Post Dialysis Refused BP Diastolic BP Location Tested BP Systolic BP Type Fetus Heart Rate Present Fetus Movement Comments Flowsheet Date 06/04/2025 Kessler Score Blood Edema Fundus Height Fundus Units Glucose Ketones Leukocytes Nitrite Labor Signs Protein Cervic Dilation Cervic Effacement Cervic Station Type Weight in lbs Pre/Post Dialysis Refused 155.37788814701 BP Diastolic BP Location Tested BP Systolic BP Type 82 L arm 136 sitting Fetus Heart Rate Present A 150 Fetus Movement A Yes Comments Patient reports dizziness wi th position changes and hot showers. Discussed hydration. Irregular BH contractions. No bleeding. Good movement. BPs overall wnl. Continue Procardia XL 60 daily. Discussed GCT, labs and RHogam, orders given. Anatomy US complete and noraml today, EFW 98% with AC 97%. Breech with borderline polyhydramnios. Possible bilobed vs posterior lobe placenta. Continue serial growth USRTC 4 weeks. Menstrual History Last Menstrual Date Menses Monthly On Bcp Conception Prior Menses Frequency Hcg Plus Date Menarche Onset Age 0312/07/2024 Delivery Information Delivery Date Delivery Type Labor Anesthesia Weeks Gestation Incision Type Labor Labor Length Hrs Delivered By Post Complications Tubal Sterilization Discharge Date Comments Discharge Information Feeding Method Contraceptive Method Maternal HG B and HCT Levels Ob Episode Information Episode Created Date Number of Fetuses Patient Bloodtype Patient rh Status Prepregnancy Weight lbs Domestic Partner Domestic Partner Phone Father Name Risk Tech Status 03/17/20 25 1 CLOSED Fetus Data First Name Last Name Admitted to NICU Weight (g) Sex Living Outcome Pediatric Complications Fetus ID Race Codes Race Delivery Type 2267.96 M Prematur e [id number] Vaginal Delivery Rasta Calculation Initial Rasta Date Initial Exam Date Initial Exam Provider Initial Ultrasound Date Last Menstrual Period Date Ultra Sound Weeks Gestation 0 Eighteen To Twenty Week Rasta Update Ultra Sound Date Fundal Height At Umbil Quickening Date Ultra Sound Latest Weeks Gestation Final Rasta Confirmed By Final Rasta Confirmed Date Final Rasta Date Ultra Sound Latest Days Gestation 0 0 Menstrual History Last Menstrual Date Menses Monthly On Bcp Conception Prior Menses Frequency Hcg Plus Date Menarche Onset Age Delivery Information Delivery Date Delivery Type Labor Anesthesia Weeks Gestation Incision Type Labor Labor Length Hrs Delivered By Post Complications Tubal Sterilization Discharge Date Comments 3 35 Discharge Information Feeding Method Contraceptive Method Maternal HG B and HCT Levels
--- OUTSIDE RECORDS SUMMARY | 2025-06-22 11:05 | XMS_ITS | Clinical Summary ---
Author Organization [facility] Address [address] [place] [address] Care Team Providers Care Merchant Banker Name Role Phone Unavailable Primary Care Provider Unavailabl e Allergies No known active allergies Medications sertraline (ZOLOFT) 25 MG tablet Take 25 mg by mouth daily. Active labetalol (NORMODYNE) 200 MG tablet Take 1 tablet (200 mg total) by mouth every 8 (eight) hours. 90 tablet 1 05/23/2022 Active Active Problems Problem Noted Date Diagnosed Date Preeclampsia, third trimester ([facility]) 05/23/20 22 Vaginal delivery ([facility]) 05/23/2022 Chronic hypertension in ([facility]) 09/2021 Anxiety 05/19/2022 ([facility]) 05/19/2022 Immunizations Immunization Administration Dates Next Due Tdap (Boostrix) 05/23/2022 Family History Medical History Relation Comments ADD / ADHD Brother Asthma Brother Diabetes Maternal Grandfather Heart Disease Maternal Grandfather Cancer Maternal Grandmother colon and b reast cancer Diabetes Mother hysterectomy Mother Seizures Sister 1 seizure Sister 1 Relation Status Comments Brother Alive Maternal Grandfather Alive Maternal Grandmother Alive Mother Alive Sister 1 Alive Sister 2 Alive Sister 3 Alive Sister 4 Alive Sister 5 Alive Sister 6 Alive Social History Tobacco Use Types Packs/Day Years Used Date Smoking Tobacco: Former Cigarettes Q uit: 10/19/2021 Smokeless Tobacco: Never Alcohol Use Standard Drinks/Week Comments No 0 (1 standard drink = 0.6 oz pur e alcohol) Humiliation, Afraid, Rape, and Kick questionnair e Answer Date Recorded Within the last year, have y ou been afraid of your partner or ex-partner? No 05/19/2022 Within the last year, have y ou been humiliated or emotionally abused in other ways by your partner or ex-partner? No Within the last year, have y ou been kicked, hit, slapped, or otherwise physically hurt by your partner or ex-partner? No 05/19/2022 Within the last year, have y ou been raped or forced to have any kind of sexual activity by your partner or ex-partner? No 05/19/2022 Social Connection and Isolat ion Panel [NHANES] Answer Date Recorded In a typical week, how many times do you talk on the phone with family, friends, or neighbors? Twice a week 05/19/2022 How often do you get togethe r with friends or relatives? More than three times a week 05/19/2022 How often do you attend chur or nondenominational services? Never 05/19/2022 Do you belong to any clubs o r organizations such as shinto groups, unions, fraternal or athletic groups, or school groups? No 05/19/2022 How often do you attend meet ings of the clubs or organizations you belong to? Never 05/19/2022 Are you , , di vorced, , never , or living with a partner? Living with partner 05/19/2022 AUDIT-C Answer Date Recorded Q1: How often do you have a drink containing alcohol? Never 05/19/2022 Q2: How many drinks containi ng alcohol do you have on a typical day when you are drinking? Patient does not drink Q3: How often do you have si x or more drinks on one occasion? Never 05/19/2022 Overall Financial Resource Strain (CARDIA) Answe r Date Recorded How hard is it for you to pa y for the very basics like food, housing, medical care, and heating? Not very hard 05/19/2022 [facility] Occupat ional Health - Occupational Stress Questionnaire Answer Date Recorded Do you feel stress - tense, restless, nervous, or anxious, or unable to sleep at night because your mind is troubled all the time - these days? Not at all 05/19/2022 Exercise Vital Sign Answer Date Recorde d On average, how many days pe r week do you engage in moderate to strenuous exercise (like a brisk walk)? 2 days 05/19/2022 On average, how many minutes do you engage in exercise at this level? 30 min 05/19/2022 Hunger Vital Sign Answer Date Recorded Within the past 12 months, y ou worried that your food would run out before you got the money to buy more. Sometimes true Within the past 12 months, t he food you bought just didn't last and you didn't have money to get more. Sometimes true 09/2021 PRAPARE - Transportation Answer Date Re corded In the past 12 months, has l ack of transportation kept you from medical appointments or from getting medications? No 09/2021 In the past 12 months, has l ack of transportation kept you from meetings, work, or from getting things needed for daily living? No 05/19/2022 Housing Stability Vital Sign Answer Kenroy e Recorded In the last 12 months, was t here a time when you were not able to pay the mortgage or rent on time? No 05/19/2022 Number of Places Lived in the Last Year Not on f ile 05/19/2022 In the last 12 months, was t here a time when you did not have a steady place to sleep or slept in a alf (including now)? Yes 05/19/2022 Comments No Sex and Gender Information Value Date Recorded Sex Assigned at Not on file Legal Sex Female 10:23 PM MOLD OPERATOR Gender Identity Not on file Sexual Orientation Not on file Last Filed Vital Signs Vital Sign Reading Time Taken Comments Blood Pressure 136/89 07/17/2022 8:31 PM CDT Pulse 85 07/17/2022 8:31 PM CDT Temperature 37.2 C (98.9 F) 07/17/2022 8:31 PM CDT Respiratory Rate 20 07/17/2022 8:31 PM CDT Oxygen Saturation 99% 07/17/2022 8:31 PM CDT Inhaled Oxygen Concentration - - Weight 54.4 kg (120 lb) 07/17/2022 8:31 PM CDT Height 154.9 cm (5' 1) 07/17/2022 8:31 PM CDT Body Mass Index 22.67 07/17/2022 8:31 PM CDT Plan of Treatment Health Maintenance Due Date Last Done Comments Cervical Cancer Screening Pap Smear (Age 21 to 29) Every 3 Years 2003 Cervical Cancer Screening 2003 Annual Physical 2006 Meningococcal B Vaccine (1 of 2 - Standard) 2019 Hepatitis B Vaccines (1 of 3 - 19+ 3-dose series) 2022 COVID-19 Vaccine ( - 2023- season) 2025 DTaP, Tdap and Td Vaccines (7 - Td or Tdap) 05/23/2032 05/23/2022, 08/05/2018, 04/13/2007, Additional history exists HPV Vaccines Completed 09/25/2014, 03/18, 11/19/2012 Meningococcal Vaccine Aged Out 09/25/2014 No israel jean carlos eligible based on patient's age to complete this topic Hepatitis C Completed 09/08/2018 Chlamydia Screening Females ages 16-24 Discontinued 07/17/2022 Pneumococcal Vaccine: Pediatrics (0 to 5 Years) and At-Risk Patients (6 to 49 Years) Aged Out No longer eligible based on patient's age to complete this topic RSV Immunizations Under 20 Months Aged Out No longer eligible based on patient's age to complete this topic Procedures Procedure Name Priority Date/Time Associated Diagnosis Comments CHLAMYDIA GC RNA STAT 07/17/2022 9:24 PM CDT HEPATITIS C ANTIBODY Routine 09/08/2018 9:56 AM MOLD OPERATOR from Last 3 Months or Most Recently Relevant to Health Maintenance Results * CHLAMYDIA GC RNA (07/17/2022 9:24 PM CDT) SPEC DESCRIPTION ENDOCERVIX 07/17/20 22 9:35 PM CDT [facility] CHLAMYDIA RNA TMA NEGATIVE NEGATIVE 022 6:21 PM CDT [facility] Comment:PERFORMED BY NUCLEIC ACID AMPLIFICATION N.GONORRHOEAE RNA TMA NEGATIVE NEGATIVE 07/18/2022 6:21 PM CDT [facility] Comment:PERFORMED BY NUCLEIC ACID AMPLIFICATION ENDOCERVICAL STRUCTURE / Unknown 07/17/2022 9:24 PM CDT Naif Loredo MD MICROBIOLOGY - GENERA L ORDERABLES Final Result [facility] (D) [facility] [address] [address], [place] [phone] [facility] (B) [facility] [address] [place] [address], [place] [phone] * HEPATITIS C ANTIBODY (09/08/2018 9:56 AM MOLD OPERATOR) HEPATITIS C AB NON-REACTI VE NON-REACTI VE 09/10/2018 4:05 PM MOLD OPERATOR [facility] SERUM OR PLASMA SPECIMEN / Unknown 09/08/2018 9:56 AM MOLD OPERATOR 09/08/2018 11:02 AM MOLD OPERATOR us Generic Conversion Md [facility] Final R esult [facility] [address] [place] [address], [place] [phone] from Last 3 Months or Most Recently Relevant to Health Maintenance Insurance Advance Directives Documents on File Type Date Recorded Patient Recruiting Manager Expl anation Guardianship - Temporary 12/05/2018 12:00 AM GUARDIANSHIP DOCUMEN T Guardianship - Temporary 12/03/2018 12:00 AM GUARDIANSHIP DOCUMEN T Guardianship - Temporary 10/18/2018 12:00 AM GUARDIANSHIP DOCUMEN T Guardianship - Temporary 10/14/2018 12:00 AM GUARDIANSHIP DOCUMEN T Guardianship - Temporary 10/14/2018 12:00 AM GUARDIANSHIP DOCUMEN T Guardianship - Temporary 10/12/2018 12:00 AM GUARDIANSHIP DOCUMEN T Guardianship - Temporary 10/12/2018 12:00 AM GUARDIANSHIP DOCUMEN T Guardianship - Temporary 10/10/2018 12:00 AM GUARDIANSHIP DOCUMEN T Guardianship - Temporary 10/04/2018 12:00 AM GUARDIANSHIP DOCUMEN T Guardianship - Temporary 10/04/2018 12:00 AM GUARDIANSHIP DOCUMEN T Guardianship - Temporary 10/03/2018 12:00 AM GUARDIANSHIP DOCUMEN T Guardianship - Temporary 10/01/2018 12:00 AM GUARDIANSHIP DOCUMEN T Guardianship - Temporary 09/30/2018 12:00 AM GUARDIANSHIP DOCUMEN T Guardianship - Temporary 09/08/2018 12:00 AM GUARDIANSHIP DOCUMENT Guardianship - Temporary 08/20/2018 12:00 AM GUARDIANSHIP DOCUMEN T Guardianship - Temporary 08/13/2018 12:00 AM GUARDIANSHIP DOCUMENT Guardianship - Temporary 08/13/2018 12:00 AM GUARDIANSHIP DOCUMENT Guardianship - Temporary 08/04/2018 12:00 AM GUARDIANSHIP DOCUMENT Guardianship - Temporary 06/20/2018 12:00 AM GUARDIANSHIP DOCUMEN T Guardianship - Temporary 06/18/2018 12:00 AM GUARDIANSHIP DOCUMEN T Guardianship - Temporary 06/09/2018 12:00 AM GUARDIANSHIP DOCUMEN T Guardianship - Temporary 05/17/2018 12:00 AM GUARDIANSHIP DOCUMEN T Guardianship - Temporary 04/22/2018 12:00 AM GUARDIANSHIP DOCUMEN T * Full Code (Latest Code Status on File) Date Activated Date Inactivated Comments 05/19/2022 8:15 PM 05/24/2022 1:57 AM * Full Code Date Activated Date Inactivated Comments 05/19/2022 7:23 PM 05/19/2022 8:15 PM * Full Code Date Activated Date Inactivated Comments 03/22/2022 9:51 PM 03/23/2022 3:37 AM * Full Code Date Activated Date Inactivated Comments 03/18/2022 4:35 PM 03/18/2022 6:44 PM
--- OUTSIDE RECORDS SUMMARY | 2025-06-22 11:05 | XMS_ITS | Encounter Summary ---
Author Organization [facility] Address [address] [place] [address] Care Team Providers Care Curing Bin Operator Name Role Phone Glenny Brown Primary Care Provider [phone] Ran Martinez DO Primary Care Provider Malu Cortes COUNSELOR DORMITORY Primary Care Provider [phone] Kassi Locke QUALITY CONTROLLER Primary Care Provider [phone] Encounter Details Date Type Department Care Team (Late st Contact Info) Description 08/13/2018 Abstract [facility] [address] [place] [address] , Yarelis Delatorre MD Social History Tobacco Use Types Packs/Day Years Used Date Smoking Tobacco: Never Assessed Comments Unknown Sex and Gender Information Value Date Recorded Sex Assigned at Not on file Legal Sex Female 10:23 PM MOLD CUTTING MACHINE OPERATOR Gender Identity Not on file Sexual Orientation Not on file documented as of this encounter Plan of Treatment Not on file documented as of this encounter Visit Diagnoses Not on filedocumented in this encounter Additional Health Concerns Infection Onset Date Last Indicated Resolved Time COVID-19 Rule Out 03/26/2022 03/26/2022 03/26/2022 4:26 PM CDT documented as of this encounter Care Teams Curing Bin Operator Relationship Specialty Start Date End Date Glenny Brown FNP [address] [place] [address] PCP - General NURSE PRACTITIONER 12/05/18 06/27/21 Ran Martinez DO [address] [place] [address] PCP - General FAMILY PRACTICE 06/28/21 12/14/23 Malu Cortes APRN [address] [place] [address] PCP - General NURSE PRACTITIONER 12/25/23 04/03/24 Kassi Locke, PAUL [address] [place] [address] PCP - General NURSE PRACTITIONER 04/04/24 03/06/25 documented as of this encounter
[2025-06-22 12:40] LABS: Hematocrit 32.1 % (37.0-47.0); Hemoglobin 10.0 g/dL (12.0-15.0)
[2025-06-22 13:00] LABS: Glucose 1 Hour PP 50gm Dose 167 mg/dL
[2025-06-22 13:29] LABS: Syphilis IgG/IgM Antibody Non-Reactive (Nonreactive)
[2025-06-22 13:41] LABS: HIV 1/2 Ab P24 Ag Result Negative (Negative)
[2025-06-24] MEDS: RHO(D) IMMUNE GLOBULIN 300 MCG/2 ML SYRINGE IM (09:47)
== END 2025-06-24 09:15 | disposition home or self-care (01) ==
LOC: ANHOBOP 09:11
PROVIDERS: Visit Provider Obstetrics & Gynecology
DX: O36.0130 Maternal care for anti-D [Rh] antibodies, third trimester, not applicable or unspecified (principal); Z3A.00 Weeks of gestation of pregnancy not specified
CPT/HCPCS: 36415; 82947; 85014; 85018; 85461; 86593; 86703; 86850; 86900; 86901; 90384; 96372; G0432; J2790

== ENCOUNTER 2025-07-08 15:15 | Outpatient (CLI) | payer OTHER, SELFPAY ==
--- OUTSIDE RECORDS SUMMARY | 2025-07-08 19:05 | XMS_ITS | Clinical Summary ---
Author Organization [facility] Address [address] [place] [address] Phone Care Team Providers Care Digester Cook Name Role Phone WorkOsbaldo acosta DO Primary Care Provider [phone] Social History Tobacco Use Types Packs/Day Years [...] Insurance MEDICAID [employer] Care Teams Digester Cook Relationship Specialty Start Date End Date Osbaldo Martinez DO [address] [place] [address] PCP - General Family Medicine 02/14/23
--- OUTSIDE RECORDS SUMMARY | 2025-07-08 19:05 | XMS_ITS | Encounter Summary ---
Author Organization [facility] Address [address] [place] [address] Care Team Providers Care Test Driller Name Role Phone Glenny Brown Primary Care Provider [phone] Ran Martinez DO Primary Care Provider Malu Cortes PROPERTY AND SUPPLY OFFICER Primary Care Provider [phone] Kassi Locke OPHTHALMIC MEDICAL TECHNICIAN Primary Care Provider [phone] Encounter Details Date Type Department Care Team (Late st Contact Info) Description 08/13/2018 Abstract [facility] [address] [place] [address] , Yarelis Delatorre MD Social History Tobacco Use Types Packs/Day Years Used Date Smoking Tobacco: Never Assessed Comments Unknown Sex and Gender Information Value Date Recorded Sex Assigned at Not on file Legal Sex Female 10:23 PM TEACHER OF FAMILY AND CONSUMER SCIENCE Gender Identity Not on file Sexual Orientation Not on file documented as of this encounter Plan of Treatment Not on file documented as of this encounter Visit Diagnoses Not on filedocumented in this encounter Additional Health Concerns Infection Onset Date Last Indicated Resolved Time COVID-19 Rule Out 03/26/2022 03/26/2022 03/26/2022 4:26 PM CDT documented as of this encounter Care Teams Test Driller Relationship Specialty Start Date End Date Glenny Brown FNP [address] [place] [address] PCP - General NURSE PRACTITIONER 12/05/18 06/27/21 Ran Martinez DO [address] [place] [address] PCP - General FAMILY PRACTICE 06/28/21 12/14/23 Malu Cortes APRN [address] [place] [address] PCP - General NURSE PRACTITIONER 12/25/23 04/03/24 Kassi Locke, PAUL [address] [place] [address] PCP - General NURSE PRACTITIONER 04/04/24 03/06/25 documented as of this encounter
--- OUTSIDE RECORDS SUMMARY | 2025-07-08 19:05 | XMS_ITS | Clinical Summary ---
Author Organization [facility] Address [address] [place] [address] Care Team Providers Care Truck Assembler Name Role Phone Unavailable Primary Care Provider Unavailabl e Allergies No known active allergies Medications sertraline (ZOLOFT) 25 MG tablet Take 25 mg by mouth daily. Active labetalol (NORMODYNE) 200 MG tablet Take 1 tablet (200 mg total) by mouth every 8 (eight) hours. 90 tablet 1 05/23/2022 Active Active Problems Problem Noted Date Diagnosed Date Preeclampsia, third trimester 05/23/2022 Vaginal delivery 05/23/2022 Chronic hypertension in 05/19/2022 Anxiety 05/19/2022 05/19/2022 Immunizations Immunization Administration Dates Next Due [...] or ex-partner? No 05/19/2022 Social Connection and Isolation Panel Answer Date Recorded In a typical week, how many times do you talk on the phone with family, friends, or neighbors? Twice a week 05/19/2022 How often do you get togethe r with friends or relatives? More than three times a week 05/19/2022 How often do you attend chur or church services? Never 05/19/2022 Do you belong to any clubs o r organizations such as confucianist groups, unions, fraternal or athletic groups, or [...] care, and heating? Not very hard 05/19/2022 [facility] Occupational Stress Questionnaire Answer [...] place to sleep or slept in a care home (including now)? Yes 05/19/2022 Comments No Sex and Gender Information Value Date Recorded Sex Assigned at Not on file Legal Sex Female 10:23 PM EVENT MARKETING SPECIALIST Gender Identity Not on file Sexual Orientation [...] - 19+ 3-dose series) 2022 COVID-19 Vaccine (1 - season) 2025 Influenza Adult (#1) 2025 DTaP, Tdap and Td Vaccines (7 - Td or Tdap) 05/23/2032 05/23/2022, 08/05/2018, 04/13/2007, Additional history exists HPV Vaccines Completed 09/25/2014, 03/18, 11/19/2012 Meningococcal Vaccine Aged Out 09/25/2014 No israel jean carlos eligible based on patient's age to complete this topic Hepatitis C Completed 09/08/2018 Chlamydia Screening Females ages 16-24 Discontinued 07/17/2022 Hepatitis A Vaccines Aged Out No long er eligible based on patient's age to complete this topic Pneumococcal Vaccine: Pediatrics (0 to 5 Years) [...] HEPATITIS C ANTIBODY Routine 09/08/2018 9:56 AM EVENT MARKETING SPECIALIST from Last 3 Months or Most Recently Relevant to Health Maintenance Results * CHLAMYDIA GC RNA (07/17/2022 9:24 PM CDT) SPEC DESCRIPTION ENDOCERVIX 07/17/20 22 9:35 PM CDT [facility] CHLAMYDIA RNA TMA NEGATIVE NEGATIVE 022 6:21 PM CDT [facility] Comment:PERFORMED BY NUCLEIC ACID AMPLIFICATION N.GONORRHOEAE RNA TMA NEGATIVE NEGATIVE 07/18/2022 6:21 PM CDT [facility] Comment:PERFORMED BY NUCLEIC ACID AMPLIFICATION ENDOCERVICAL STRUCTURE / Unknown 07/17/2022 9:24 PM CDT Naif Loredo MD MICROBIOLOGY - GENERA L ORDERABLES Final Result [facility] [address] [place] [address], [place] [phone] [facility] (B) [facility] [address] [place] [address], [place] [phone] * HEPATITIS C ANTIBODY (09/08/2018 9:56 AM EVENT MARKETING SPECIALIST) HEPATITIS C AB NON-REACTI VE NON-REACTI VE 09/10/2018 4:05 PM EVENT MARKETING SPECIALIST [facility] SERUM OR PLASMA SPECIMEN / Unknown 09/08/2018 9:56 AM EVENT MARKETING SPECIALIST 09/08/2018 11:02 AM EVENT MARKETING SPECIALIST us Generic Conversion Md [facility] Final R esult [facility] [address] [place] [address], [place] [phone] from Last 3 Months or Most Recently Relevant to Health Maintenance Insurance Advance Directives Documents on File Type Date Recorded Patient Acid Changer Expl anation Guardianship - Temporary 12/05/2018 12:00 [...]
--- OUTSIDE RECORDS SUMMARY | 2025-07-08 19:05 | XMS_ITS | Data Portability ---
Author Organization [facility] Address [address] [place] [address] Assessment No assessment recorded. Plan of Treatment Reminders Order Date Submit Date Provider Last Modified By Organization Details Last Modified Time Details Appointments NST 2024 10:30A M NST SCHEDULE Not available Not available Not available OB ROUTINE 2024 11:00A M ANDREW CHATMAN MD Not available Not available Not available U/S OB BPP 2024 11:30A M ULTRASOUND Not available Not available Not available Lab CMP, serum or plasma 2024 025 [facility], [address], [place], [address], 07/02/2025 12:25:25 protein :creati nine ratio, urine 2024 025 [facility], [address], [place], [address], 07/02/2025 12:25:26 bacteri al vaginos is DNA, PCR, vaginal fluid 2024 025 [facility] (Lab), [address], [place], [address], 05/22/2025 17:05:21 chago sp DNA, vaginal 2024 025 [facility] (Lab), [address], [place], [address], 05/22/2025 17:05:21 STI panel 2024 025 [facility] (Lab), [address], [place], [address], 05/22/2025 17:05:20 Referral None recorde d. Procedures None recorde d. Surgeries None recorde d. Imaging US, obstetr ic, follow- up 2024 025 [facility], [address], [place], [address], 07/02/2025 11:42:47 US, obstetr ic, follow- up 2024 025 [facility], [address], [place], [address], 06/04/2025 14:07:37 Medication Orders None recorde d. Patient TargetsNo targets recorded. Patient InstructionsNo instructions recorded. Reason for Referral None Reported. Results Created Date Observation Date Name Description Value Unit Range Abnormal Flag Note LastModifiedBy Organization Detail LastModifiedTime 05/07/20 25 05/07/2025 US, obste tric, 2nd or 3rd trime ster No observ ation record ed. [email or web address] [facility] [address], [place], [address], 05/07/2025 18:24:42 05/07/20 25 05/07/2025 US, obste tric, 2nd or 3rd trime ster No observ ation record ed. [email or web address] [address], [place], [address], 05/07/2025 14:17:24 06/04/20 25 06/04/2025 US, obste tric, follo w-up No observ ation record ed. [facility] [address], [place], [address], 06/04/2025 13:43:46 06/04/20 25 06/04/2025 US, obste tric, follo w-up No observ ation record ed. [email or web address] [address], [place], [address], 06/04/2025 14:09:43 07/02/20 25 07/02/2025 US, obste tric, follo w-up No observ ation record ed. [email or web address] [facility] [address], [place], [address], 07/02/2025 12:10:00 07/02/20 25 07/02/2025 US, obste tric, follo w-up No observ ation record ed. KRISTIE [address], [place], [address], 07/02/2025 14:10:31 Result Notes None recorded. Problems Name Problem SNOMED Code Status Onset Date Resolution Date Notes Provider Name and Address Organization Details Recorded Time 01525618 Active [address] [facility] 16:17:32 Pleurisy 003439995 Active 2024 albuterol CORINE CHATMAN MD [address], [place], [address], [facility] 16:32:17 Anxiety 04850139 Active 2024 hydroxyzi ne PRRuslan CHATMAN MD [address], [place], [address], [facility] 16:32:34 Hypertens cristina disorder 86428854 Active 2024 baseline labs 03/17 wnl Procardia XL 60 daily ANDREW CHATMAN MD [address], [place], [address], [facility] 5 11:33:46 Abnormal placenta affecting managemen t of mother 77343762 Active 2024 - serial growth US ANDREW CHATMAN MD [address], [place], [address], [facility] 12:57:01 Large for gestation age fetus 501231292 Active 2024 - EFW 98% at 24 weeks > 88% at 29 weeks - Continue serial growth US ANDREW CHATMAN MD [address], [place], [address], [facility] 12:24:52 Steriliza tion requested 781714640 Active 2024 Needs to sign papers at 32 weeks ANDREW CHATMAN MD [address], [place], [address], [facility] 12:24:31 Problem Notes None recorded. Medical Equipment None Reported. Allergies No known drug allergies Medications Name Sig Start Date Stop Date Status Note LastModified by Organization Details LastModified Time nifedipine ER 30 mg tablet,exte nded release 24 hr TAKE 1 TABLET BY MOUTH EVERY DAY active Not Available Not Available No t Available ondansetron HCl 4 mg tablet TAKE 2 TABLETS BY MOUTH EVERY DAY DIRECTED active Not Available Not Available No t Available Diflucan 150 mg tablet Take 1 tablet by oral route. 2024 active Not Available Not Available Not Avai lable metronidazo le 500 mg tablet TAKE 1 [...] Not Available Not Available No t Available ferrous sulfate 325 mg (65 mg iron) tablet Take 1 tablet every day by oral route. 2024 active Not Available Not Available Not Avai lable hydroxyzine HCl 25 mg tablet TAKE 1 [...] Not Available Not Available No t Available 28 mg iron-800 mcg tablet Take 1 tablet every day by oral route. 2024 active Not Available Not Available Not Avai lable Vitals Date Recorded Body height Body mass index (BMI) Body weight Systolic And Diastolic Provider Name and Address Organization Details Last Updated DateTime 05/16/2025 152.4 cm 28.8 kg/m2 13612.23 g 128/77 mm[Hg] Isatu Glendy [facility] 05/16/2025 11:46:01 Date Recorded Body weight Systolic And Diastolic Provider Name and Address Organization Details Last Updated DateTime 06/04/2025 41259.90667 g 136/82 mm[Hg] [facility] 06/04/2025 11:00:41 Date Recorded Body weight Systolic And Diastolic Provider Name and Address Organization Details Last Updated DateTime 07/02/2025 94208.52815 g 131/83 mm[Hg] [facility] 07/02/2025 11:38:55 Social History Question Answer Notes LastModified by Organizat ion Details LastModified Time Tobacco Smoking Status Never Smoker [facility] 03/17/2025 14:57:54 Do You Have An Advance Directive? No [email or web address] Information n ot available 03/17/2025 If You Are , What Was Your Level Of Alcohol Consumption Prior To ? None [email or web address] Information not available 03/17/2025 Are You Blind Or Do You Have Difficulty Seeing? No Information n ot available 03/17/2025 What Is Your Level Of Caffeine Consumption? None [email or web address] Information not available 03/17/2025 In The 14 Days Before Symptom Onset, Have You Had Close Contact With A Laboratory-confirm ed COVID-19 While That Case Was Ill? No [email or web address] Information n ot available 03/17/2025 In The 14 Days Before Symptom Onset, Have You Had Close Contact With A Person Who Is Under Investigation For COVID-19 While That Person Was Ill? No [email or web address] Information not available 03/17/2025 Have You Been To An Area Known To Be High Risk For COVID-19? No [email or web address] Information not available 03/17/2025 Are You Deaf Or Do You Have Serious Difficulty Hearing? No [email or web address] Information not available 03/17/2025 What Type Of Diet Are You Following? REGULAR Information n ot available 03/17/2025 What Is The Highest Grade Or Level Of School You Have Completed Or The Highest Degree You Have Received? AD69982-3 [email or web address] Information not available 03/17/2025 Are There Any Guns Present In Your Home? No [email or web address] Information not available 03/17/2025 Do You Use Your Seat Belt Or Car Seat Routinely? Yes [email or web address] Information not available 03/17/2025 Are You Sexually Active? Yes [email or web address] Information not available 03/17/2025 Do You Have Smoke And Carbon Monoxide Detectors In Your Home? Yes Information not available 03/17/2025 Do You Use Sunscreen Routinely? Yes [email or web address] Information not available 03/17/2025 Has Tobacco Cessation Counseling Been Provided? No [email or web address] Information not available 03/17/2025 Do You Have Difficulty Walking Or Climbing Stairs? No [email or web address] Information not available 03/17/2025 Sex: Unknown Functional Status Question Answer Note LastModified by Organizat ion Details LastModified Time Do you use any illicit or recreational drugs? No [email or web address] Information not available 03/17/2025 Do you or have you ever used any other forms of tobacco or nicotine? No [email or web address] Information not available 03/17/2025 What is your level of alcohol consumption? None [email or web address] Information not available 03/17/2025 Are you able to walk independently without assistance or assistive devices? YESWOREST [email or web address] Information not available 03/17/2025 Are you able to care for yourself independently? Yes Information not available 03/17/2025 Do you have difficulty dressing, bathing, grooming, or toileting? No [email or web address] Information not available 03/17/2025 What is your exercise level? None [email or web address] Information not available 03/17/2025 Mental Status Question Answer Note LastModified by Organization D etails LastModified Time Do you feel stressed (tense, restless, nervous, or anxious, or unable to sleep at night)? MI8662-0 [email or web address] Information not available 03/17/2025 Family History Relationship Description Onset Age of this Age Resolved Age Notes LastModified by Organization Details LastModified Time Mother Diabetes mellitus [email or web address] Not available 2024 15:00:16 Mother Hypertensive disorder [email or web address] Not available 2024 15:00:32 Maternal Grandmother Malignant neoplasm of breast [email or web address] Not available 2024 15:00:53 Maternal Grandmother Carcinoma of colon [email or web address] Not available 2024 15:01:28 Maternal Grandmother Diabetes mellitus [email or web address] Not available 2024 15:01:38 Maternal Grandfather Diabetes mellitus [email or web address] Not available 2024 15:01:46 Maternal Grandfather Hypercholest erolemia [email or web address] Not available 2024 15:02:26 Maternal Grandfather Heart disease [email or web address] Not available 2024 15:02:42 Medical History Condition Response Other N Blood Transfusion N Dermatologic Disorders N Gestational Diabetes N Anxiety Disorder Y Autoimmune disease N Arthritis N Polyps N Infertility N Acid Reflux (GERD) N Cancer N Varicosities N Stroke N Neurologic/Epilepsy N Fibromyalgia N Headaches N Kidney Disease N Heart Problems N Kidney or Bladder Problems N Eating Disorder N Art (IVF or FET) N Hepatitis/Liver Disease N No Past Medical History N Urinary Tract Infection N Asthma Y Trauma/Violence N Thrombophilias N Allergies (Food, seasonal, environmental ) N Breast Cancer N Drug/Latex Allergies/Reactions N Lung Disease N Defects or Inherited Disease N Breast Problem N Hematologic disorders N Anesthesia Complications N History of STI N Deep Vein Thrombosis N Polycystic ovary syndrome N History of abnormal pap N Endometriosis N High Cholesterol N Thyroid Problems N GI Problems N Anemia N Psychiatric Illness N Ovarian Cancer N Diabetes N Pulmonary (TB, Asthma) N Eczema N Abuse/Domestic Violence N Depression/ depression Y Heart Disease N Pre-Eclampsia Y Hypertension Y Osteoporosis N Gynecological History Statement/Question Response Flow Moderate [...] ICD10 Code Diagnosis IMO Codes Diagnosis Note [id number] ANDREW CHATMAN MD [facility] [address],[place] [address] 03/17/2025 14:26:36 03/17/2025 16:09:07 screening 638302635 Z36.87 Z3A.14 8682778816 [id number] ANDREW CHATMAN MD [facility] [address],[place] [address] 03/17/2025 14:27:27 03/17/2025 16:55:35 screening 062316913 Z36.0 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 26360450 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.430 Chronic hy pertension complicating AND/OR reason for care during 76478852 O10.919 90101336 - asymptomat ic- hx of preeclamps ia with severe features with G2 - not currently on BP meds- baseline labs today- if elevated again in 1 week, will start procardia XL 30 daily Gestation period, 14 weeks 81104742 Z3A.14 4628418 - continue PNV [id number] Lior Ruiz MD [facility] [address],[place] [address] 04/02/2025 15:08:55 04/02/2025 16:18:16 care status 995490029 Z34.82 07055232 [id number] ANDREW CHATMAN MD [facility] [address],[place] [address] 05/07/2025 11:05:46 05/07/2025 12:37:49 Ultrasound scan - obstetric 521070324 Z36.3 Z3A.21 18995 [id number] ANDREW CHATMAN MD [facility] [address],[place] [address] 05/07/2025 11:06:18 05/07/2025 12:57:31 Hypertensive disorder 82572561 I10 - chronic HTN, hx of preeclamps ia with severe features in G2 - discussed 37 week induction due to chronic HTN on meds- plan for 32 week testing Abnormal p lacenta affecting management of mother 27523185 O43.199 09980952 - serial growth US Gestation period, 21 weeks 68212061 Z3A.21 2390929 [id number] MD Alli ABRAMS [address],[place] [address] 05/16/2025 11:31:03 05/16/2025 12:36:53 Recurrent candidiasis of vagina 312126950 B37.31 08805293 - treated x3 in last month- extended swab sent to evaluate further- follow up on results as available [id number] ANDREW CHATMAN MD [facility] [address],[place] [address] 06/04/2025 09:50:03 06/04/2025 10:56:40 Follow-up encounter 171966590 Z36.2 Z3A.25 9967841086 [id number] ANDREW CHATMAN MD [facility] [address],[place] [address] 06/04/2025 09:50:25 06/04/2025 12:39:13 Hypertensive disorder 44403650 I10 62474500 - chronic HTN, hx of preeclamps ia with severe features in G2 - discussed 37 week induction due to chronic HTN on meds - plan for 32 week testing- continue Procardix XL 60 daily Anxiety 48721242 F41.9 40817 Abnormal p lacenta affecting management of mother 59885002 O43.199 20889369 - serial growth US Large for gestation age fetus 272856307 O36.60X0 01725103 - EFW 98% at 24 weeks with borderline polyhydram nios- serial growth US Gestation period, 25 weeks 45822753 Z3A.25 1889007 - continue PNV [id number] ANDREW CHATMAN MD [facility] [address],[place] [address] 07/02/2025 09:07:00 07/02/2025 11:37:38 Hypertension AND/OR vomiting complicating childbirth AND/OR puerperium 786898156 O13.3 O43.193 Z3A.29 2736750 [id number] ANDREW CHATMAN MD [facility] [address] [address] 07/02/2025 09:07:14 07/02/2025 12:31:13 Hypertensive disorder 17675872 I10 94105144 - chronic HTN, hx of preeclamps ia with severe features in G2 - discussed 37 week induction due to chronic HTN on meds- plan for 32 week testing- continue Procardia XL 60 daily- check CMP today due to intermitte nt RUQ pain Sterilizat ion requested 351527395 Z30.2 95094394 - patient desires permanent sterilizat ion- discussed risks, benefits, and alternativ es of bilateral salpingect cristian, including risks of bleeding, infection and injury to surroundin g organs. Also discussed alternativ e contracept cristina options including partner vasectomy and patient declines.- tubal papers to be signed at 32 weeks Abnormal p lacenta affecting management of mother 50671566 O43.199 73086658 - serial growth US Gestation period, 29 weeks 55901143 Z3A.29 1582260 - continue PNV Palpitations 57192291 R0 0.2 30182 - holter monitor ordered Health Concerns Section Related Observation LastModified by Organization Detai ls LastModified Time None Recorded Concern Status LastModified by Organization Details LastModified Time None Recorded Advance Directives Directive N: Payers Insurance Date Sequence Insurance Name Policy Number Policy Sotelo Covered Member ID Sotelo Member ID Guarantor Name 06/29/2025 1 [facility] - DOS ON OR AFTER 21 (MEDICAID REPLACEMENT - HMO) Shweta Boucher [id number] Shweta Boucher 03/17/2025 1 [facility] [id number] Shweta Guevara Citlaly [id number] Shweta Boucher Notes Date Note Type Note Provider Name and Address Organization Details Recorded Time 05/16/2025 text/html ROS as noted in the HPI Patient presents for evaluation for recurrent yeast infections. She reports multiple episodes of irritation, abnormal white and thick discharge, and dryness. She has had temporary relief with Diflucan but symptoms keep returning. She tried Monistat 7 also with temporary relief. No new soaps or detergent or other irritants. Isatu haq, [facility] 05/16/2025 12:41:54 06/04/2025 text/html Generic HPI TemplateReported by Patient ANDREW CHATMAN MD [address], [place], [address], [facility] 06/04/2025 12:37:05 07/02/2025 text/html Generic HPI TemplateReported by Patient ANDREW CHATMAN MD [address], [place], [address], [facility] 07/02/2025 12:29:18 OBGyn Episode Ob Episode Information Episode Created Date Number of Fetuses Patient Bloodtype Patient rh Status Prepregnancy Weight lbs Domestic Partner Domestic Partner Phone Father Name Talent Director Status 03/17/20 25 1 CLOSED Fetus Data First Name Last Name Admitted to NICU Weight (g) Sex Living Outcome Pediatric Complications Fetus ID Race Codes Race Delivery Type 3373.36 3704 F Full Term [id number] Vaginal Delivery Rasta Calculation Initial Rasta Date [...] Domestic Partner Domestic Partner Phone Father Name Talent Director Status 03/17/20 25 1 A Negative OPEN Fetus Data First Name Last Name Admitted to NICU Weight (g) Sex Living Outcome Pediatric Complications Fetus ID Race Codes Race Delivery Type [id number] Problems Problem Notes RHOGAM @ 28 WKS Problem Name Start Date End Date Resolution Snomed Code Not e Large for gestation age fetus 06/04/20251995789236926 - EFW 98% at 24 weeks > 88% at 29 weeks- Continue serial growth US Anxiety 03/17/2025 34216908 hydroxyzi ne PRN Hypertensive disorder 03/17/2025 0448410 3 baseline labs 03/17 wnlProcardia XL 60 daily Abnormal placenta affecting management of mother 05/07/2025 42942625 - serial growth US Pleurisy 03/17/2025 680322771 albuterol PRN Sterilization requested 07/02/2025 524645116 Needs to sign p apers at 32 weeks Rasta Calculation Initial Rasta Date Initial Exam [...] Date Ultra Sound Latest Days Gestation 0 [email or web address] 03/17/2025 09/13/20 25 0 Pre- Flowsheet Flowsheet Date 03/17/2025 Kessler Score Blood Edema Fundus Height Fundus Units Glucose Ketones Leukocytes Nitrite Labor Signs Protein Cervic Dilation Cervic Effacement Cervic Station neg none Type Weight in lbs Pre/Post Dialysis Refused Weight 135.650529637489 BP Diastolic BP Location Tested BP Systolic BP Type 100 R arm 180 sitting 90 R arm 140 sitting Fetus Heart Rate Present A Present Fetus Movement A No Comments Patient presents to [facility] care. complicated by hx of preeclampsia in [...] Weight in lbs Pre/Post Dialysis Refused Weight 138.284877034391 BP Diastolic BP Location Tested BP Systolic [...] Type Weight in lbs Pre/Post Dialysis Refused 146.034729923338 BP Diastolic BP Location Tested BP Systolic [...] Weight in lbs Pre/Post Dialysis Refused Weight 147.399653522419 BP Diastolic BP Location Tested BP Systolic [...] Type Weight in lbs Pre/Post Dialysis Refused 155.39389743006 BP Diastolic BP Location Tested BP Systolic [...] placenta. Continue serial growth USRTC 4 weeks. Flowsheet Date 07/02/2025 Kessler Score Blood Edema Fundus Height Fundus Units Glucose Ketones Leukocytes Nitrite Labor Signs Protein Cervic Dilation Cervic Effacement Cervic Station Type Weight in lbs Pre/Post Dialysis Refused BP Diastolic BP Location Tested BP Systolic BP Type Fetus Heart Rate Present Fetus Movement Comments Flowsheet Date 07/02/2025 Kessler Score Blood Edema Fundus Height Fundus Units Glucose Ketones Leukocytes Nitrite Labor Signs Protein Cervic Dilation Cervic Effacement Cervic Station Type Weight in lbs Pre/Post Dialysis Refused 164.65010293162 BP Diastolic BP Location Tested BP Systolic BP Type 83 L arm 131 sitting Fetus Heart Rate Present A 131 Fetus Movement A Yes Comments Doing well, no issues. Good movement. No cramping or bleeding. Having some intermittent RUQ pain, will check CMP and PC ratio today. Needs to start Fe supplementation. Also reports palpitations. BP well controlled. Will order Holter monitor. EFW 88% today, continue serial growth US. Will start testing at 32 weeks for chronic HTN. Patient would also like to discuss permanent sterilization. She has completed childbearing and would like a permanent form of control. No PSH. She and her partner have discussed their options and would like to move forward with tubal ligation . Will sign consents at 32 weeks. RTC 2 weeks. Menstrual History Last Menstrual Date Menses [...] Domestic Partner Domestic Partner Phone Father Name Talent Director Status 03/17/20 25 1 CLOSED Fetus Data First Name Last Name Admitted to NICU Weight (g) Sex Living Outcome Pediatric Complications Fetus ID Race Codes Race Delivery Type 2267.96 M Prematur e [id number] Vaginal Delivery Rasta Calculation Initial Rasta Date [...]
--- OUTSIDE RECORDS SUMMARY | 2025-07-08 19:05 | XMS_ITS | Encounter Summary ---
Author Organization [facility] Address [address] [place] [address] Care Team Providers Care Furniture Mover Helper Name Role Phone Glenny Brown Primary Care Provider [phone] Ran Martinez DO Primary Care Provider Malu Cortes HARVEST MANAGER Primary Care Provider [phone] Kassi Locke INDUSTRIAL ORGANIZATIONAL PSYCHOLOGIST Primary Care Provider [phone] Encounter Details Date Type Department Care Team (Late st Contact Info) Description 10/04/2018 Abstract [facility] CONVERSION [address] [place] [address] , Yarelis Delatorre MD Social History Tobacco Use Types Packs/Day Years Used Date Smoking Tobacco: Never Assessed Comments Unknown Sex and Gender Information Value Date Recorded Sex Assigned at Not on file Legal Sex Female 10:23 PM [employer] Gender Identity Not on file Sexual Orientation Not on file documented as of this encounter Plan of Treatment Not on file documented as of this encounter Visit Diagnoses Not on filedocumented in this encounter Additional Health Concerns Infection Onset Date Last Indicated Resolved Time COVID-19 Rule Out 03/26/2022 03/26/2022 03/26/2022 4:26 PM CDT documented as of this encounter Care Teams Furniture Mover Helper Relationship Specialty Start Date End Date Glenny Brown FNP [address] [place] [address] PCP - General NURSE PRACTITIONER 12/05/18 06/27/21 Ran Martinez DO [address] [place] [address] PCP - General FAMILY PRACTICE 06/28/21 12/14/23 Malu Cortes APRN [address] [place] [address] PCP - General NURSE PRACTITIONER 12/25/23 04/03/24 Kassi Locke, PAUL [address] [place] [address] PCP - General NURSE PRACTITIONER 04/04/24 03/06/25 documented as of this encounter
--- NOTE | 2025-07-16 15:56 | WPDHOLTEREM ---
Holter/Event Monitor Holter/Event Monitor Date of procedure: 07/08/25 Holter/Event Procedure: 3-7 Day Holter Monitor Indications: Palpitations Conclusion: 1. 5 days holter monitor on 07/08/25. 2. Underlying rhythm is sinus rhythm. HR range 54-171 bpm; average HR 91 bpm. HR at 171 bpm was on 07/10/25 at 3:22 pm. 3. There are rare premature supraventricular complexes. No supraventricular tachycardia. 4. There are rare premature ventricular complexes. No ventricular tachycardia. 5. No significant pauses greater than 3 seconds. 6. Patient reports 3 episodes of symptoms of heart racing, lightheadedness with demonstrate sinus rhythm, HR range 90-99 bpm.
== END 2025-07-08 15:16 | disposition home or self-care (01) ==
LOC: ANHCARD 15:17
PROVIDERS: Visit Provider Obstetrics & Gynecology
DX: O26.893 Other specified pregnancy related conditions, third trimester (principal); I49.1 Atrial premature depolarization; I49.3 Ventricular premature depolarization; R00.2 Palpitations; R42 Dizziness and giddiness; Z3A.29 29 weeks gestation of pregnancy
CPT/HCPCS: 93242

== ENCOUNTER 2025-08-06 09:47 | Observation (INO) | payer OTHER, SELFPAY ==
[2025-08-06 10:27] VITALS: BMI 32.7
--- NOTE | 2025-08-06 10:30 | OBADM ---
This patient, Shweta Boucher, admitted to the OB room 116 for observation. Patient/family oriented to hospital policies and general routines including ID bracelet, bed and alarms, visiting hours, pain management, procedures, bathroom and other care routines, personal items, smoking policy, room service/diet, and visiting hours. Patient/Family are encouraged to report perceived risks to care and to ask questions if they do not understand what they are told or what they should do.
[2025-08-06 10:49] VITALS: BP 131/74; PULSE 79; RESP 16; TEMP 36.8
[2025-08-06 11:00] VITALS: BP 127/67; PULSE 99
[2025-08-06 11:06] LABS: Add Urine Microscopic? YES; Appearance Urine Cloudy (Clear); Glucose Urine UA Negative (Negative); Leukocyte Esterase Ur Negative LEU/UL (Negative); Nitrate Urine Negative (Negative); Non Pathogenic Casts 0-2; Specific Grav Ur 1.008 (1.001-1.035)
--- NOTE | 2025-08-06 11:24 | PC.NURSE ---
Dr. Nayak informed of mild contractions on the monitor that pt feels. Pt has had intercourse in the last 24 hrs and she has not taken her Procardia XL yet today. SVE was 1 cm- didn't try to go all the way to internal os and cervix was thick and firm. UA was normal. Orders received for discharge.
[2025-08-06 11:30] VITALS: BP 136/66; PULSE 92
--- NOTE | 2025-08-10 12:31 | PM.OBTRLD ---
OB - Triage/Final Diagnosis Visit Information Comments/Additional reasons for admission: I have assessed the risk for this patient, Shweta Boucher, and determined that she would benefit from observation care. Evaluation Laboratory results: Laboratory Tests 08/06/25 10:57 Urine Color Yellow Urine Appearance Cloudy H Urine pH 6.5 Ur Specific [place] 1.008 Urine Protein Negative Urine Glucose (UA) Negative Urine Ketones Negative Ur Blood (Man) Negative Urine Nitrate Negative Urine Bilirubin Negative Urine Urobilinogen 0.2 Leukocyte Esterase Rfl Negative Urine RBC 0-2 Urine WBC 0-5 Ur Squamous Epith Cells Occasional Urine Bacteria None seen Urine Casts 0-2 Final Diagnosis (1) False labor: Code(s): O47.9 - False labor, unspecified Status: Acute
== END 2025-08-06 11:42 | disposition home or self-care (01) ==
PROVIDERS: Admitting Provider Obstetrics & Gynecology; Visit Provider Obstetrics & Gynecology
DX: O47.03 False labor before 37 completed weeks of gestation, third trimester (principal); Z3A.34 34 weeks gestation of pregnancy
CPT/HCPCS: 81001; G0378; G0379

== ENCOUNTER 2025-08-09 22:40 | Outpatient (CLI) | payer OTHER, SELFPAY ==
[2025-08-09 22:57] VITALS: BP 142/87; PULSE 89
[2025-08-09 23:00] VITALS: BP 134/65; PULSE 82
[2025-08-09 23:10] VITALS: BP 144/85; PULSE 74
[2025-08-09 23:20] VITALS: BP 151/86; PULSE 88
[2025-08-09 23:36] VITALS: BP 141/78; PULSE 83
[2025-08-09 23:47] LABS: Hematocrit 35.8 % (37.0-47.0); Hemoglobin 11.1 g/dL (12.0-15.0); Immature Granulocyte Percent A 0.8 % (0-0.5); Lymphocytes Absolute Auto 2.23 K/mm3 (0.9-3.2); Mean Corpuscular HGB Conc 31.0 g/dl (32-36); Mean Corpuscular Hemoglobin 25.8 pg (26-34); Mean Corpuscular Volume 83.1 fl (80-100); Nucleated Red Blood Cells Absolute Auto 0.000 K/mm3 (0.0-0.012); Nucleated Red Blood Cells Perc 0.0 % (0.0-0.2); Platelet Count Result 136 k/mm3 (150-375); Red Blood Count 4.31 M/mm3 (4.2-5.4); White Blood Count 8.4 K/mm3 (4.5-10.0)
[2025-08-09 23:50] VITALS: BP 135/68; PULSE 74
[2025-08-09 23:52] LABS: Add Urine Microscopic? YES; Appearance Urine Clear (Clear); Glucose Urine UA Negative (Negative); Leukocyte Esterase Ur Trace LEU/UL (Negative); Nitrate Urine Negative (Negative); Non Pathogenic Casts 0-2; Specific Grav Ur 1.015 (1.001-1.035)
[2025-08-09 23:54] LABS: Total Protein Urine Random 17 mg/dL; Ur Ttl Prot Creatinine Ratio 0.28 mg/mg (0-0.20)
[2025-08-09 23:57] LABS: Alanine Aminotransferase 17 U/L (6-35); Albumin Level 3.5 g/dL (3.5-5.1); Alkaline Phosphatase 123 U/L (38-126); Anion Gap 6 mmol/L (4-12); Aspartate Amino Transferase 23 U/L (14-36); Bilirubin,Total 0.6 mg/dL (0.2-1.3); Blood Urea Nitrogen 11 mg/dL (7-17); Calcium 11.6 mg/dL (8.4-10.2); Carbon Dioxide 23 mmol/L (22-30); Chloride 102 mmol/L (98-107); Estimated Glomerular Filt Rate > 60; Glucose 85 mg/dL (65-110); Potassium 4.0 mmol/L (3.4-5.0); Sodium 131 mmol/L (137-145); Total Protein 6.8 g/dL (6.3-8.2); Uric Acid 5.7 mg/dL (2.5-7.5)
[2025-08-10] VITALS: BP 130/71; PULSE 84
[2025-08-10 00:07] LABS: Hypochromasia 1+; Schistocytes None Seen; Stomatocytes Occasional
[2025-08-10 00:10] VITALS: BP 124/85; PULSE 90
== END 2025-08-10 00:20 | disposition home or self-care (01) ==
LOC: ANHOBOP 22:44 → ANHLDR 08-10 01:31
PROVIDERS: Obstetrics & Gynecology; Visit Provider Obstetrics & Gynecology
DX: O13.9 Gestational [pregnancy-induced] hypertension without significant proteinuria, unspecified trimester (principal); Z3A.00 Weeks of gestation of pregnancy not specified
CPT/HCPCS: 36415; 80053; 81001; 82570; 84156; 84550; 85025; 87086; 99199

== ENCOUNTER 2025-08-21 11:55 | Inpatient (IN) | payer OTHER, SELFPAY ==
[2025-08-21] VITALS (129 sets, daily range): BP systolic 111–178; BP diastolic 48–142; PULSE 71–225; RESP 17; TEMP 36.6–37.2; O2SAT 95–100; BMI 33.3
[2025-08-21] MEDS: AMPICILLIN SODIUM 2 GM in SODIUM CHLORIDE 0.9% IV 100 ML 200 ML IVPB (13:10)
[2025-08-21] MEDS: LACTATED RINGERS 1,000 ML 125 ML IV CONT ×3 (13:11→16:54)
[2025-08-21 13:15] LABS: Hematocrit 40.9 % (37.0-47.0); Hemoglobin 12.6 g/dL (12.0-15.0); Immature Granulocyte Percent A 1.0 % (0-0.5); Lymphocytes Absolute Auto 1.96 K/mm3 (0.9-3.2); Mean Corpuscular HGB Conc 30.8 g/dl (32-36); Mean Corpuscular Hemoglobin 25.7 pg (26-34); Mean Corpuscular Volume 83.3 fl (80-100); Nucleated Red Blood Cells Absolute Auto 0.000 K/mm3 (0.0-0.012); Nucleated Red Blood Cells Perc 0.0 % (0.0-0.2); Platelet Count Result 163 k/mm3 (150-375); Red Blood Count 4.91 M/mm3 (4.2-5.4); White Blood Count 8.2 K/mm3 (4.5-10.0)
--- NOTE | 2025-08-21 13:17 | WPDHPUPDATE1 ---
History and Physical Update Update Date/Time: 08/21/25 13:17 20-year-old multiparous female at 36 weeks gestation in labor. Artificial rupture membranes was performed. To start Pitocin. Active management of labor. Reassuring status. History and Physical has been reviewed, including an updated exam of the patient. There are NO changes in the patient's condition. Risks, benefits, and alternatives have been discussed and questions answered. Patient agrees to proceed with procedure.
[2025-08-21 13:29] LABS: Alanine Aminotransferase 18 U/L (6-35); Albumin Level 3.9 g/dL (3.5-5.1); Alkaline Phosphatase 161 U/L (38-126); Anion Gap 5 mmol/L (4-12); Aspartate Amino Transferase 26 U/L (14-36); Bilirubin,Total 0.7 mg/dL (0.2-1.3); Blood Urea Nitrogen 11 mg/dL (7-17); Calcium 11.9 mg/dL (8.4-10.2); Carbon Dioxide 20 mmol/L (22-30); Chloride 105 mmol/L (98-107); Estimated Glomerular Filt Rate > 60; Glucose 101 mg/dL (65-110); Potassium 4.4 mmol/L (3.4-5.0); Sodium 130 mmol/L (137-145); Total Protein 7.5 g/dL (6.3-8.2); Uric Acid 7.2 mg/dL (2.5-7.5)
[2025-08-21 13:36] LABS: Anisocytosis 2+; Ovalocytes 1+
[2025-08-21 13:37] LABS: Hypochromasia Occasional; Schistocytes None Seen
[2025-08-21 14:08] LABS: Syphilis IgG/IgM Antibody Non-Reactive (Nonreactive)
--- NOTE | 2025-08-21 14:28 | LDADM ---
This patient, Shweta Boucher, was admitted to Labor/Delivery/Recovery 106 on 08/21/25 at 11:55. Plans for labor, pain management and were discussed with patient. Patient/family oriented to hospital policies and general routines including ID bracelet, bed and alarms, visiting hours, pain management, procedures, bathroom and other care routines, personal items, smoking policy, room service/diet and guest tray routines, security routines, and visiting hours. Patient/Family are encouraged to report perceived risks to care and to ask questions if they do not understand what they are told or what they should do. See OBIX for further documentation.
[2025-08-21] MEDS: OXYTOCIN 30 UNITS/NS 500 ML 30 UNITS/500 ML BAG (15:02)
--- NOTE | 2025-08-21 15:55 | WPDANESEPPF ---
Anes - Initial Pre Proc Eval Procedure: labor epidural Date/Time: 08/21/25 15:55 Surgeon: Ervin Nayak MD Pre Op Diagnosis: labor pain Pre Op Diagnosis: Labor Patient Data Age: 20 Gender: F Height: 1.55 m Weight: 80 kg Last Vital Signs Temp 36.6 C 08/21/25 13:00 Pulse 96 08/21/25 15:53 BP 133/68 08/21/25 15:53 Pulse Ox 99 08/21/25 15:51 O2 Del Method Room Air 08/21/25 13:00 Allergies Allergy/AdvReac Type Severity Reaction Status Date / Time No Known Allergies Allergy Mild Verified 08/21/25 14:29 Home Medications ?Medication ?Instructions ?Recorded ?Confirmed ?Type acetaminophen 500 mg tablet 1,000 mg (2 x 500 mg) PO Q6H PRN 02/28/25 08/09/25 Rx (Tylenol Extra Strength) pain #50 tabs albuterol sulfate 90 mcg/actuation 2 puff inhalation QID PRN 02/28/25 08/10/25 Rx aerosol inhaler shortness of breath or wheezing #8.5 grams ferrous sulfate 325 mg (65 mg 325 mg PO DAILY 08/02/25 08/21/25 History iron) tablet (Feosol) vits no.130-ferrous fum 1 tablet PO DAILY 08/02/25 08/21/25 History 27 mg iron-folic acid 800 mcg tablet ( Vitamin) nifedipine 60 mg tablet,extended 30 mg PO DAILY 08/06/25 08/21/25 History release 24 hr Laboratory Tests 08/21/25 08/21/25 12:51 12:57 WBC 8.2 K/mm3 (4.5-10.0) RBC 4.91 M/mm3 (4.2-5.4) Hgb 12.6 g/dL (12.0-15.0) Hct 40.9 % (37.0-47.0) MCV 83.3 fl (80-100) MCH 25.7 L pg (26-34) MCHC 30.8 L g/dl (32-36) RDW 24.0 H % (11.5-14.5) Plt Count 163 k/mm3 (150-375) MPV 10.8 H fl (7.4-10.4) Immature Gran % (Auto) 1.0 H % (0-0.5) Neut % (Auto) 65.7 % (45.5-73.1) Lymph % (Auto) 23.8 % (18.3-44.2) [place] % (Auto) 8.1 % (2.6-8.5) Eos % (Auto) 1.0 % (0-4.4) Baso % (Auto) 0.4 % (0.2-1.2) Lymph # (Auto) 1.96 K/mm3 (0.9-3.2) [place] # (Auto) 0.7 H K/mm3 (0.1-0.6) Eos # (Auto) 0.1 K/mm3 (0-0.3) Baso # (Auto) 0.0 K/mm3 (0.0-0.1) Abs Immat Gran (auto) 0.08 H K/mm3 (0.00-0.031) Absolute Neuts (auto) 5.4 K/mm3 (1.3-6.7) Absolute Nucleated RBC 0.000 K/mm3 (0.0-0.012) Band Neutrophils % Not Reportable Nucleated RBC % 0.0 % (0.0-0.2) Platelet Estimate Adequate (Adequate) Large Platelets Present Hypochromasia Occasional Anisocytosis 2+ Ovalocytes 1+ Schistocytes None seen Sodium 130 L mmol/L (137-145) Potassium 4.4 mmol/L (3.4-5.0) Chloride 105 mmol/L (98-107) Carbon Dioxide 20 L mmol/L (22-30) Anion Gap 5 mmol/L (4-12) BUN 11 mg/dL (7-17) Creatinine 0.58 L mg/dL (0.7-1.0) Estim Creat Clear Calc Not Reportable Estimated GFR > 60 (59 - ) Glucose 101 mg/dL (65-110) Uric Acid 7.2 mg/dL (2.5-7.5) Calcium 11.9 H mg/dL (8.4-10.2) Total Bilirubin 0.7 mg/dL (0.2-1.3) AST 26 U/L (14-36) ALT 18 U/L (6-35) Alkaline Phosphatase 161 H U/L (38-126) Total Protein 7.5 g/dL (6.3-8.2) Albumin 3.9 g/dL (3.5-5.1) Syphilis IgG/IgM Ab Non-reactive (Nonreactive) Blood Type A Negative Antibody Screen Positive Antibody Identification Inconclusive Antigen Identification TNP CLEMENTINA, IgG Interpret Not Performed CLEMENTINA, Poly Interpret Negative CLEMENTINA, Complement Interp Not Performed Patient hx anesthesia problems: none Family hx anesthesia problems: none Results Review: All pre-operative results and documents have been reviewed as part of the pre-operative evaluation. [facility] Past Medical History Medical History (Updated 08/21/25 @ 15:56 by Nilesh Hughes DO) Asthma Hypertension Family History Family History (Updated 08/02/25 @ 13:39 by Mery La RN) Grandparent Breast cancer Skin cancer Colon cancer Throat cancer Diabetes 1.5, managed as type 2 Mother Diabetes 1.5, managed as type 2 Hypertension Sibling Seizure Social History Social History (Updated 12/18/21 @ 22:09 by Jeannette Butler PA-C) Smoking status: Never smoker Substance use: never Lack of Transportation: No Lack of Food: Never True Current Housing: I Have Housing Concerned About Future Housing: No Difficulty Paying Gas/Electric Bills: No Difficulty Paying for Meds: No Currently Unemployed: No Education: High School Diploma/GED Difficulty w/ Childcare or Family Care: No Spiritual care concerns: No Anes - Eval Final PreProcedure Day of Procedure 08/21/25 15:55 Patient weight: obese ASA classification: III Anesthetic plan: proceed Anesthesia type and monitoring: regional epidural and standard monitoring Results Review: All pre-operative results and documents have been reviewed as part of the pre-operative evaluation. Informed Consent: The patient's anesthetic plan and its attendant risks and benefits were discussed with the patient/family/POA. Questions were solicited and answers provided to the satisfaction of the patient/family/POA.
--- NOTE | 2025-08-21 16:02 | P.PNOB_ITS ---
OB - PN: Subj Subjective Date/time seen: 08/21/25 16:02 artificial rupture membranes was performed, failed 1st time, 4 cm/-2/80%. Reassuring heart tones. Continue active management of labor. OB - PN: Obj Data Labs 08/21/25 12:51 08/21/25 12:57 Labs: Laboratory Results - last 24 hr 08/21/25 08/21/25 12:51 12:57 WBC 8.2 RBC 4.91 Hgb 12.6 Hct 40.9 MCV 83.3 MCH 25.7 L MCHC 30.8 L RDW 24.0 H Plt Count 163 MPV 10.8 H Immature Gran % (Auto) 1.0 H Neut % (Auto) 65.7 Lymph % (Auto) 23.8 [place] % (Auto) 8.1 Eos % (Auto) 1.0 Baso % (Auto) 0.4 Lymph # (Auto) 1.96 [place] # (Auto) 0.7 H Eos # (Auto) 0.1 Baso # (Auto) 0.0 Abs Immat Gran (auto) 0.08 H Absolute Neuts (auto) 5.4 Absolute Nucleated RBC 0.000 Band Neutrophils % Not Reportable Nucleated RBC % 0.0 Platelet Estimate Adequate Large Platelets Present Hypochromasia Occasional Anisocytosis 2+ Ovalocytes 1+ Schistocytes None seen Sodium 130 L Potassium 4.4 Chloride 105 Carbon Dioxide 20 L Anion Gap 5 BUN 11 Creatinine 0.58 L Estim Creat Clear Calc Not Reportable Estimated GFR > 60 Glucose 101 Uric Acid 7.2 Calcium 11.9 H Total Bilirubin 0.7 AST 26 ALT 18 Alkaline Phosphatase 161 H Total Protein 7.5 Albumin 3.9 Syphilis IgG/IgM Ab Non-reactive Blood Type A Negative Antibody Screen Positive Antibody Identification Inconclusive Antigen Identification TNP [place], IgG Interpret Not Performed CLEMENT[place], Poly Interpret Negative CLEMENTINA, Complement Interp Not Performed OB - PN A/P Time Spent With Patient Time: Total time spent is greater than 50% in coordination of care (as documented) at patient's floor/unit and/or counseling patient:
[2025-08-21] MEDS: AMPICILLIN SODIUM 1 GM in SODIUM CHLORIDE 0.9% IV 50 ML 100 ML IVPB (17:00)
[2025-08-21] MEDS: LORATADINE 10 MG TABLET PO (18:42)
--- NOTE | 2025-08-21 21:47 | PM.OBPRVD ---
OB - Vaginal Delivery Note Procedure Delivery date: 08/21/25 Delivery augmentation: Rupture of Membranes and Pitocin Delivery monitor: External FHT and External Uterine Route of delivery: Episiotomy description: None Laceration Description: Labial (1st degree bilat.) Delivery repair: vicryl Specimen: No Quantitative Blood Loss (ml): 200 Anesthesia type: Epidural Disposition: Floor Complications: No immediate complications
[2025-08-21] MEDS: OXYTOCIN 30 UNITS/NS 500 ML 30 UNITS/500 ML BAG 125 UNITS IV CONT (22:12)
[2025-08-21] MEDS: IBUPROFEN 600 MG TABLET PO (23:44)
[2025-08-22] VITALS (7 sets, daily range): BP systolic 131–153; BP diastolic 66–84; PULSE 68–84; RESP 14–18; TEMP 36.4–36.9; O2SAT 97–100
--- NOTE | 2025-08-22 00:22 | OBPPTRN ---
Patient transferred to post room #281 via wheelchair. Support person present. Oriented to unit, room, information board, rooming in, admission packet and security measures. Patient verbalizes understanding.
[2025-08-22] MEDS: BENZOCAINE 20% AER SPR (*SP) 56 GM CAN 1 SPRAY TOPICAL (01:34)
[2025-08-22] MEDS: WITCH HAZEL 40 PADS 1 PAD TOPICAL ×2 (01:34→16:22)
[2025-08-22] MEDS: ACETAMINOPHEN 500 MG TABLET 1000 MG PO ×3 (02:50→16:05)
[2025-08-22 04:24] LABS: Hematocrit 34.3 % (37.0-47.0); Hemoglobin 10.6 g/dL (12.0-15.0)
--- NOTE | 2025-08-22 07:44 | PM.OBPNVD ---
OB - PN: Subj Subjective Date/time seen: 08/22/25 07:44 Interval history: pp day 1 doing well OB - PN: Obj Data Labs 08/22/25 04:18 08/21/25 12:57 Labs: Laboratory Results - last 24 hr 08/21/25 08/21/25 08/22/25 12:51 12:57 04:18 WBC 8.2 RBC 4.91 Hgb 12.6 10.6 L Hct 40.9 34.3 L MCV 83.3 MCH 25.7 L MCHC 30.8 L RDW 24.0 H Plt Count 163 MPV 10.8 H Immature Gran % (Auto) 1.0 H Neut % (Auto) 65.7 Lymph % (Auto) 23.8 [place] % (Auto) 8.1 Eos % (Auto) 1.0 Baso % (Auto) 0.4 Lymph # (Auto) 1.96 [place] # (Auto) 0.7 H Eos # (Auto) 0.1 Baso # (Auto) 0.0 Abs Immat Gran (auto) 0.08 H Absolute Neuts (auto) 5.4 Absolute Nucleated RBC 0.000 Band Neutrophils % Not Reportable Nucleated RBC % 0.0 Platelet Estimate Adequate Large Platelets Present Hypochromasia Occasional Anisocytosis 2+ Ovalocytes 1+ Schistocytes None seen Sodium 130 L Potassium 4.4 Chloride 105 Carbon Dioxide 20 L Anion Gap 5 BUN 11 Creatinine 0.58 L Estim Creat Clear Calc Not Reportable Estimated GFR > 60 Glucose 101 Uric Acid 7.2 Calcium 11.9 H Total Bilirubin 0.7 AST 26 ALT 18 Alkaline Phosphatase 161 H Total Protein 7.5 Albumin 3.9 Syphilis IgG/IgM Ab Non-reactive Blood Type A Negative Antibody Screen Positive Antibody Identification Inconclusive Antigen Identification TNP [place], IgG Interpret Not Performed CLEMENT[place], Poly Interpret Negative CLEMENTINA, Complement Interp Not Performed OB - PN A/P Plan day: 1 Plan: routine care Time Spent With Patient Time: Total time spent is greater than 50% in coordination of care (as documented) at patient's floor/unit and/or counseling patient: Review of Systems Review of Systems: All systems reviewed & are unremarkable except as noted in HPI and below Exam Const: General: cooperative and comfortable Chest: Chest palpation & inspection: normal inspection of the chest Skin: General skin exam: normal color Neuro: General: patient oriented x3 Psych: Appearance: grossly normal
[2025-08-22] MEDS: IBUPROFEN 600 MG TABLET PO ×3 (08:22→22:02)
[2025-08-22] MEDS: MULTIVIT/MIN/PREN/FOL AC/IRON TABLET 1 TAB PO (08:23)
[2025-08-22] MEDS: DOCUSATE SODIUM 100 MG CAPSULE PO ×2 (08:23→16:06)
--- NOTE | 2025-08-22 09:40 | PC.NURSE ---
Mother verbalizes she is able to independently latch with appropriate positioning and alignment. She denies any nipple discomfort and is responsively . Per mother she brought in her own breast pump and has done her own measuring for flange size, handout given on pumping and milk storage. She is planning on pumping and bottling when does not breastfeed. is currently meeting outcomes for weight, output, jaundice, blood sugar and was told to have feeding frequencies of 8-12 times in 24 hours. Mother declines any additional assistance or education at this time. Mother is encouraged to call for assistance if her infant does not latch, pain with latching, questions or concerns. Mother voiced understanding of information shared along with the mom/baby guide for an additional resource. Per mother she will need a [facility] referral, form is on mother's physical chart, just needs to be signed and faxed to the [place] office before discharge. Reported to the Primary RN.
[2025-08-22] MEDS: CYCLOBENZAPRINE HCL 10 MG TABLET PO (13:43)
--- NOTE | 2025-08-22 14:08 | WPDANLDPN2 ---
Anes-Prog Note L&D Date/Time: 08/22/25 14:08 Comfortable throughout: labor and delivery Neuraxial method: epidural Epidural/Spinal procedure site: clean & non-tender Neuro status: Neuro function grossly intact. Cardiovascular status: normal Respiratory status: normal Airway patency: baseline Mental status: baseline Post-Op hydration status: normal Vital Signs: Last Vital Signs Temp 36.6 C 08/22/25 12:27 Pulse 80 08/22/25 12:27 Resp 18 08/22/25 12:27 BP 132/67 08/22/25 12:27 Pulse Ox 97 08/22/25 12:27 O2 Del Method Room Air 08/21/25 13:00 Pain score (VAS): 1 I/O: Intake & Output 08/21/25 08/22/25 08/22/25 23:59 07:59 15:59 Intake Total 1100 1 Output Total 200 Balance 900 1 Post-procedural complaints: none Patient feedback: Patient satisfied with anesthetic care.
--- NOTE | 2025-08-22 14:54 | PC.NURSE ---
3978. [place] Charisma Shaw received phone call from care coordination RN Cheyanne 08/22/25 @[id number] stating this patient was cleared to be discharged with DCFS after their investigations into the case. She stated patient was ok to be discharged as long as medically cleared with her OB also.
--- NOTE | 2025-08-22 15:22 | PCCCNOTE ---
Recvd consult for pt. requesting resources. Met with pt. and ANURADHA Spence at bedside. Pt. reports this is her 3rd baby and she has a 6 year old daughter and 2 year old son who are in the care of her mother's (lives in [place]). Pt. reports willingly gave up custody of daughter 6 years ago due to pt. only being 14 years old. Pt. reports gave up custody of her 2 year old, about 3 months ago, when she went to [facility]. Pt. reports she and baby will be living in [place], with Jordy, and Jordy's parents. Pt. reports having all baby supplies, and looking into both WIC and [facility] [place]. Pt. reports having DCFS history, last case being in 2019, which led to pt's 6 year old going into her mother's custody. Pt. reports she sees her two oldest children all the time. Pt. denies drug use during . Report made online with [facility] (#[id number]). Vargas at [facility] reports they will follow up with pt. and baby in the community and offer resources to her at that time. Vargas reports pt. can discharge home with baby once both stable. AYSHA Cueto aware of visit. Pt. might be discharged tomorrow 08/23.
[2025-08-23] MEDS: CYCLOBENZAPRINE HCL 10 MG TABLET PO (00:30)
[2025-08-23] MEDS: ACETAMINOPHEN 500 MG TABLET 1000 MG PO (00:30)
[2025-08-23] MEDS: IBUPROFEN 600 MG TABLET PO (04:28)
[2025-08-23 07:59] VITALS: BP 112/73; PULSE 78; RESP 14; TEMP 36.7; O2SAT 100
--- NOTE | 2025-08-23 09:11 | P.PNOB_ITS ---
OB - PN: Subj Subjective Date/time seen: 08/23/25 09:11 Interval history: pp day 2 doing well breast feeding/pumping OB - PN: Obj Data Labs 08/22/25 04:18 08/21/25 12:57 OB - PN A/P Plan day: 2 Plan: routine care and discharge home Time Spent With Patient Time: Total time spent is greater than 50% in coordination of care (as documented) at patient's floor/unit and/or counseling patient: Review of Systems 2 Review of Systems: All systems reviewed & are unremarkable except as noted in HPI and below Exam 2 Const: General: cooperative, healthy appearing and comfortable Chest: Chest palpation & inspection: normal inspection of the chest Resp: Effort & Inspection: normal respiratory effort Cardio: Rate: regular rate GI: Other: soft Back/Spine/Pelvis: Back: no CVA tenderness Skin: General skin exam: normal color Neuro: General: patient oriented x3 Extrem: General: normal to inspection Psych: Appearance: grossly normal
--- NOTE | 2025-08-23 09:15 | P.DS_ITS ---
DS: Admitting Diagnosis Discharge Date 08/23/25 Admitting Diagnosis labor DS: Discharge Diagnosis Discharge Diagnosis (1) Vaginal delivery: Code(s): O80 - Encounter for full-term uncomplicated delivery Status: Acute OB - DS: Summary OB Procedures : None OB Procedures Intrapartum: Spontaneous Vag Delivery OB Procedures: : None Peripartum Data Laceration Description: Labial (1st degree bilat.) Episiotomy description: None Time Spent with Patient Time attestation: Total time spent providing and/or coordinating discharge services: Discharge Plan Discharge Attending physician on discharge: Lior Ruiz Discharging Clinician: Antoinette James Patient Disposition: Home Activity: pelvic rest Diet: regular Patient Instructions: Antibiotic Form Patient Language: Persian Stand Alone Forms: General Discharge Information Follow-up/Referrals: Ervin Nayak MD [Physician, [facility]] - 4 Weeks Discharge Medications: Continued albuterol sulfate 90 mcg/actuation HFA aerosol inhaler 2 puff inhalation QID PRN (Reason: shortness of breath or wheezing) Qty: 8.5 0RF Discontinued acetaminophen [Tylenol Extra Strength] 500 mg tablet 1,000 mg PO Q6H PRN (Reason: pain) Qty: 50 0RF No Action Vitamin 27 mg iron- 800 mcg tablet 1 tablet PO DAILY ferrous sulfate [Feosol] 325 mg (65 mg iron) tablet 325 mg PO DAILY nifedipine 60 mg tablet extended release 24hr 30 mg PO DAILY Date of admission: 08/21/25 11:55 Primary Care Provider: PHYSICIAN,ENERGY AND CONSERVATION TECHNICIAN Admitting Provider: Ervin Nayak Attending physician on admission: Ervin Nayak Condition: Stable
[2025-08-23] MEDS: DOCUSATE SODIUM 100 MG CAPSULE PO (09:36)
[2025-08-23] MEDS: MULTIVIT/MIN/PREN/FOL AC/IRON TABLET 1 TAB PO (09:36)
[2025-08-23] MEDS: FERROUS SULFATE 325 MG TABLET PO (09:36)
--- NOTE | 2025-08-23 11:54 | PC.NURSE ---
1140. Consulted with mother concerning needs and she shared her ability to independently latch infant optimally without pain. Mother is feeding appropriately for growth of infant and understands stimulating infant to eat if needed. Infant has had appropriate feedings in the last 24 hours meets the outcomes for weight, output, blood sugar and jaundice at this time. Reinforced understanding of milk production, transition of milk, signs of adequate intake, transition of stool, prevention/relief of engorgement, plugged ducts, mastitis, responsive watching for feeding cues, the different methods of stimulating infant to breastfeed 1-3 hours after the start of the last feeding, community resources, and when to call a provider using the resource of the feeding sheet along with the mom and baby guide.Mom states she plans to continue to breastfeed, pump and supplement her on discharge. [facility] referral faxed to [place] [facility] office. Patient also states she needs a breast pump. Patient provided a breast pump thru [facility] medical. Reported to primary RN.
[2025-08-23] MEDS: TETANUS,DIPHTHERIA,AC PERTUSSIS ADULT (0.5 ML) BOOSTRIX IM (12:28)
== END 2025-08-23 13:47 | disposition home or self-care (01) | DRG 560 ==
LOC: ANHLDR 13:14 → ANHOB2 08-23 09:15 → ANHLDR 08-26 07:57 → ANHOB2 08-26 07:57
PROVIDERS: Admitting Provider Obstetrics & Gynecology; Visit Provider Obstetrics & Gynecology
DX: O10.92 Unspecified pre-existing hypertension complicating childbirth (principal); Z37.0 Single live birth; Z3A.36 36 weeks gestation of pregnancy; O60.14X0 Preterm labor third trimester with preterm delivery third trimester, not applicable or unspecified; O70.0 First degree perineal laceration during delivery; Z23 Encounter for immunization
CPT/HCPCS: 36415; 80053; 84550; 85014; 85018; 85025; 86593; 86850; 86880; 86900; 86901; 90715; A9270; J0290; J2590; J2795; J7120